=== PATIENT | female | born 1970 | race Hispanic/Latino ===

== ENCOUNTER 2017-01-11 15:10 | Inpatient (IN) | payer OTHER, SELFPAY ==
[2017-01-11 15:28] VITALS: BMI 35.4
--- NOTE | 2017-01-11 16:22 | ED PDOC ---
Arrival/HPI <Fito Sanchez - Last Filed: 01/11/17 18:49> - General Historian: Patient - History of Present Illness Time/Duration: < week Symptom Course: Intermittent Quality: Other (pinching ) Severity Level: Moderate <Chhaya Villagomez - Last Filed: 01/11/17 19:21> <Micah Man - Last Filed: 01/11/17 21:15> - General Chief Complaint: Abdominal Pain Time Seen by Provider: 01/11/17 15:48 - History of Present Illness Narrative History of Present Illness (Text): 01/11/17 16:20 46 year old female with past medical history of Crohn's and MVR presents for abd pain that began about 2 days ago. Pain is intermittent and 10/10 in severity. Patient used Oxycodone for pain. She uses oxycodone at home for back pain. Patient also c/o of nausea and vomiting over past 2 days. She denies having any C/D. 01/11/17 19:[address] Stout (Chhaya Villagomez) Past Medical History - Provider Review Nursing Documentation Reviewed: Yes - Infectious Disease Hx of Infectious Diseases: None - Tetanus Immunization Tetanus Immunization: Up to Date - Cardiac Hx Cardiac Disorders: Yes Hx Mitral Valve Prolapse: Yes - Pulmonary Hx Respiratory Disorders: No - Neurological Hx Neurological Disorder: No - HEENT Hx HEENT Disorder: No - Renal Hx Renal Disorder: No - Endocrine/Metabolic Hx Endocrine Disorders: No - Hematological/Oncological Hx Blood Disorders: No - Integumentary Hx Dermatological Disorder: No - Musculoskeletal/Rheumatological Hx Musculoskeletal Disorders: Yes Hx Arthritis: Yes Hx Back Pain: Yes Hx Herniated Disk: Yes - Gastrointestinal Hx Gastrointestinal Disorders: Yes Hx Crohn's Disease: Yes - Genitourinary/Gynecological Hx Genitourinary Disorders: No - Psychiatric Hx Depression: No Hx Emotional Abuse: No Hx Physical Abuse: No Hx Substance Use: No - Surgical History Hx Hysterectomy: Yes - Anesthesia Hx Anesthesia Reactions: No Hx Malignant Hyperthermia: No - Suicidal Assessment Feels Threatened In Home Enviroment: No <Chhaya Villagomez - Last Filed: 01/11/17 19:21> Family/Social History - Physician Review Nursing Documentation Reviewed: Yes Family/Social History: Unknown Family HX Smoking Status: Former Smoker Hx Alcohol Use: No Hx Substance Use: No Hx Substance Use Treatment: No <Chhaya Villagomez - Last Filed: 01/11/17 19:21> Allergies/Home Meds <Fito Sanchez - Last Filed: 01/11/17 18:49> <Chhaya Villagomez - Last Filed: 01/11/17 19:21> <Micah Man - Last Filed: 01/11/17 21:15> Allergies/Adverse Reactions: Allergies morphine Allergy (Verified 01/11/17 15:28) RASH Home Medications: Home Meds Medication Instructions Recorded Confirmed Diazepam [Valium] 10 mg PO PRN PRN 01/11/17 01/11/17 Gabapentin [Neurontin] 300 mg PO BID 01/11/17 01/11/17 levoFLOXacin [Levaquin] 500 mg PO DAILY 01/11/17 01/11/17 oxyCODONE [oxycodone Hydrochloride] 10 mg PO PRN PRN 01/11/17 01/11/17 Review of Systems - Review of Systems Constitutional: Fevers Eyes: Normal ENT: Normal Respiratory: Normal. absent: SOB, Wheezing Cardiovascular: Normal. absent: Chest Pain, Palpitations, Edema Gastrointestinal: Abdominal Pain, Nausea, Vomiting. absent: Constipation, Diarrhea, Hematochezia, Hematemesis Genitourinary Female: Normal. absent: Dysuria, Frequency Musculoskeletal: Normal. absent: Arthralgias, Back Pain Skin: Normal. absent: Rash, Skin Lesions Neurological: Normal. absent: Headache, Dizziness Endocrine: Normal. absent: Diaphoresis <Chhaya Villagomez - Last Filed: 01/11/17 19:21> Physical Exam Temperature: Afebrile Blood Pressure: Normal Pulse: Regular Respiratory Rate: Normal Appearance: Positive for: Well-Appearing, Non-Toxic Pain Distress: Moderate Mental Status: Positive for: Alert and Oriented X 3 - Systems Exam Head: Present: Atraumatic Mouth: Present: Moist Mucous Membranes Respiratory/Chest: Present: Clear to Auscultation, Good Air Exchange. No: Respiratory Distress, Accessory Muscle Use, Wheezes, Rales, Rhonchi Cardiovascular: Present: Regular Rate and Rhythm, Murmurs, Normal S1, S2 Abdomen: Present: Tenderness, Normal Bowel Sounds, Guarding. No: Distention, Peritoneal Signs, Rebound Upper Extremity: Present: Normal Inspection. No: Edema Lower Extremity: Present: Normal Inspection. No: Edema, CALF TENDERNESS Neurological: Present: GCS=15 Skin: Present: Warm, Dry, Normal Color. No: Rashes Psychiatric: Present: Alert, Oriented x 3, Normal Insight, Normal Concentration <HernandoChhaya - Last Filed: 01/11/17 19:21> ED OBSERVATION Date of observation admission: 01/11/17 Time of observation admission: 16:30 <Fito Sanchez - Last Filed: 01/11/17 18:49> <Chhaya Villagomez - Last Filed: 01/11/17 19:21> <Micah Man - Last Filed: 01/11/17 21:15> - Observation admission statement Patient is being placed in observation because:: Abdominal Pain (Fito Sanchez) - Goals of Observation Goals of observation are:: Needs reassessment for improving or resolution of symptoms. (Fito Sanchez) - Progress Note Progress Note: 01/11/17 18:49 A 46 year old female with abdominal pain. In agreement with resident note, which includes further HPI details. Patient was seen and evaluated with resident , came up with plan and treatment together. Signed out to Dr. Man to f/u CT, reevaluate and disposition. (Fito Sanchez) 01/11/17 19:59 sign out from day shift, pt with hx of crohn's, with abd pain, pending CT read, dispo Report Date : 01/11/2017 20:29:00 Dictator : Mode Moreira MD EXAM: CT Abdomen and Pelvis With Intravenous Contrast IMPRESSION: 1. The gallbladder is distended, without discrete gallstones. 2. There is hypodense fatty infiltration of the liver. 3. There is mild right hydronephrosis and hydroureter, without an obstructing calculus. There is mild fullness of the left renal collecting system, without obstructive nephrolithiasis. This is a progression. 4. There is an ovoid density again visualized within the left side of the pelvis measuring 2.9 x 2.7 cm, likely representing the left ovary. An enlarged lymph node would be considered with a clinical history of oophorectomy. A thin peripherally enhancing probable cyst is identified within the presumed left ovary measuring 1.6 x 1[address] findings described above. 01/11/17 21:11 on reeval, pt states she still has discomfort will order more pain meds dw Dr. Darek Stout, agrees with obs for further w/u and GI eval pt aware of and agrees with plan (Micah Man) Disposition/Present on Arrival - Present on Arrival Any Indicators Present on Arrival: No - Disposition Have Diagnosis and Disposition been Completed?: No Disposition Time: 16:30 <Fito Sanchez - Last Filed: 01/11/17 18:49> - Present on Arrival History of DVT/PE: No History of Uncontrolled Diabetes: No Urinary Catheter: No History of Decub. Ulcer: No History Surgical Site Infection Following: None <Chhaya Villagomez - Last Filed: 01/11/17 19:21> - Present on Arrival Any Indicators Present on Arrival: No - Disposition Have Diagnosis and Disposition been Completed?: Yes Disposition Time: 15:30 Patient Plan: Observation <Micah Man - Last Filed: 01/11/17 21:15> - Disposition Diagnosis: Abdominal pain Disposition: HOSPITALIZED Patient Problems: Current Active Problems Problem Status Onset Abdominal pain Acute Condition: STABLE
[2017-01-11] MEDS ORDERED: Iohexol 240 (50 ml) ONE (16:41)
[2017-01-11 16:46] LABS: HEMOGLOBIN 13.5 gm/dL (12.0-16.0); MEAN CELL VOLUME 85.8 fL (80.0-105.0); MEAN CORPUSCULAR HEMOGLOBIN 30.3 pg (25.0-35.0); MEAN CORPUSCULAR HGB CONC 35.3 g/dl (31.0-37.0); MEAN PLATELET VOLUME 11.5 fl (7.0-11.0); RBC 4.45 10^6/uL (3.5-6.1); RED CELL DISTRIBUTION WIDTH 13.1 % (11.5-14.5); WHITE BLOOD COUNT 8.7 10^3/ul (4.5-11.0)
[2017-01-11 16:51] LABS: ALB/GLOB RATIO 1.3 (1.1-1.8); ALBUMIN 4.6 g/dL (3.0-4.8); ALT/SGPT 47 U/L (7-56); AST/SGOT 42 U/L (15-39); BLOOD UREA NITROGEN 14 mg/dL (7-21); CALCIUM 9.9 mg/dL (8.4-10.5); GFR AFRICAN-AMERICAN > 60; GFR NON-AFRICAN AMERICAN > 60; LIPASE 80 U/L (23-300)
[2017-01-11] MEDS ORDERED: HYDROmorphone 2 mg/ml ISec IVP STA ×2 (17:01→21:07)
[2017-01-11] MEDS ORDERED: Iohexol 350 MG/100 ML VIAL ONE (18:23)
[2017-01-11 19:17] LABS: URINE BILIRUBIN NEGATIVE (NEGATIVE); URINE BLOOD NEGATIVE (NEGATIVE); URINE GLUCOSE (UA) NEGATIVE (NEGATIVE); URINE LEUKOCYTE ESTERASE TRACE Leu/uL (NEGATIVE); URINE NITRATE NEGATIVE (NEGATIVE); URINE PROTEIN NEGATIVE mg/dL (<30 mg/dL)
[2017-01-11 19:18] LABS: URINE APPEARANCE CLEAR (CLEAR); URINE COLOR YELLOW (YELLOW)
[2017-01-11 19:36] LABS: URINE BACTERIA FEW (NEG); URINE RBC 0 - 2 /hpf (0-2)
--- NOTE | 2017-01-11 20:29 | CT ---
EXAM: CT Abdomen and Pelvis With Intravenous Contrast CLINICAL HISTORY: The patient age is 46 years old and is female; Pain; Abdominal pain Facility exam id and description: Ct abdpelc abd pelvis po iv contrast TECHNIQUE: Axial computed tomography images of the abdomen and pelvis with intravenous contrast. This CT exam was performed using one or more of the following dose reduction techniques: automated exposure control, adjustment of the mA and/or kV according to patient size, and/or use of iterative reconstruction technique. Coronal and sagittal reformatted images were created and reviewed. CONTRAST: 100 mL of omni 350 administered intravenously. EXAM DATE/TIME: 01/11/2017 4:27 PM COMPARISON: CT - ABD PELVIS PO IV CONTRAST 01/17/2012 3:15:13 PM FINDINGS: Lower thorax: Dependent atelectatic change is identified at the lung bases posteriorly. ABDOMEN: Liver: There is hypodense fatty infiltration of the liver. The liver measures 19.0 cm in length, consistent with mild hepatomegaly. Gallbladder and bile ducts: The gallbladder is distended, without discrete gallstones. Pancreas: Normal contour, without acute peripancreatic stranding. Spleen: No splenomegaly. Adrenals: No mass. Kidneys and ureters: There is mild right hydronephrosis and hydroureter, without an obstructing calculus. There is mild fullness of the left renal collecting system, without obstructive nephrolithiasis. Stomach and bowel: Postoperative changes are visualized, consistent with a right hemicolectomy. Contrast and fecal material mildly distend the sigmoid colon. Appendix: The appendix is not visualized. PELVIS: Bladder: No mass. Reproductive: There is an ovoid density within the left side of the pelvis measuring 2.9 x 2.7 cm, likely representing the left ovary. An enlarged lymph node would be considered with a clinical history of oophorectomy. A thin peripherally enhancing probable cyst is identified within the presumed left ovary measuring 1.6 x 1.0 cm. The uterus is absent. Small hypodense foci are visualized at the level of the cervix, suggestive of nabothian cysts. ABDOMEN and PELVIS: Intraperitoneal space: Multiple surgical clips are visualized within the right side of the abdomen. Bones/joints: Mild disc bulging is visualized at L4-5 and L5-S1. Soft tissues: There is minimal herniation of fat into the umbilicus. Vasculature: No abdominal aortic aneurysm. Lymph nodes: No significant retroperitoneal or intrapelvic lymphadenopathy. IMPRESSION: 1. The gallbladder is distended, without discrete gallstones. 2. There is hypodense fatty infiltration of the liver. 3. There is mild right hydronephrosis and hydroureter, without an obstructing calculus. There is mild fullness of the left renal collecting system, without obstructive nephrolithiasis. This is a progression. 4. There is an ovoid density again visualized within the left side of the pelvis measuring 2.9 x 2.7 cm, likely representing the left ovary. An enlarged lymph node would be considered with a clinical history of oophorectomy. A thin peripherally enhancing probable cyst is identified within the presumed left ovary measuring 1.6 x 1.[address] findings described above.
[2017-01-11] MEDS: Sodium Chloride 0.9% 1,000 ML IV SCH (21:41)
[2017-01-12] MEDS ORDERED: HYDROmorphone 2 mg/ml ISec IVP STA ×2 (00:37→04:30)
--- NOTE | 2017-01-12 00:39 | CP.PCM.PN ---
Subjective - Date & Time of Evaluation Date of Evaluation: 01/12/17 Time of Evaluation: 00:38 - Subjective Subjective: Patient was seen at bedside. She complained of abdominal pain, severe, diffuse.Has nausea also.Vomited. Denies diarrhoea. ROS:Negative except as mentioned above. This 46 year old white woman was admitted with Has PMH of Crohn's disease, obesity, MVR, right hemicolectomy, PUD, gastritis, fatty infiltration. Objective - Vital Signs/Intake and Output Vital Signs (last 24 hours): Temp Pulse Resp BP Pulse Ox 98 F 63 18 113/58 L 98 01/12/17 00:26 01/12/17 00:26 01/12/17 00:26 01/12/17 00:26 01/12/17 00:26 - Medications Medications: Current Medications Sodium Chloride (Sodium Chloride 0.9%) 1,000 mls @ 100 mls/hr IV .Q10H SABINA Last Admin: 01/11/17 21:41 Dose: 100 mls/hr - Labs Labs: 01/11/17 16:33 01/11/17 16:33 Lab Studies 01/11/17 01/11/17 01/11/17 Range/Units 19:07 16:33 16:33 WBC 8.7 (4.5-11.0) 10^3/ul RBC 4.45 (3.5-6.1) 10^6/uL Hgb 13.5 (12.0-16.0) gm/dL Hct 38.2 (36.0-48.0) % MCV 85.8 (80.0-105.0) fL MCH 30.3 (25.0-35.0) pg MCHC 35.3 (31.0-37.0) g/dl RDW 13.1 (11.5-14.5) % Plt Count 125 (120.0-450.0) 10^3/uL MPV 11.5 H (7.0-11.0) fl Sodium 142 (132-148) mmol/L Potassium 3.8 (3.6-5.0) mmol/L Chloride 103 (98-107) mmol/L Carbon Dioxide 25 (21-33) mmol/L Anion Gap 18 (10-20) BUN 14 (7-21) mg/dL Creatinine 0.9 (0.5-1.4) mg/dL Est GFR ( Amer) > 60 Est GFR (Non-Af Amer) > 60 Random Glucose 87 (70-110) mg/dL Calcium 9.9 (8.4-10.5) mg/dL Total Bilirubin 1.1 (0.2-1.3) mg/dL AST 42 H (15-39) U/L ALT 47 (7-56) U/L Alkaline Phosphatase 131 (38-133) U/L Total Protein 8.2 (5.8-8.3) g/dL Albumin 4.6 (3.0-4.8) g/dL Globulin 3.6 gm/dL Albumin/Globulin Ratio 1.3 (1.1-1.8) Lipase 80 (23-300) U/L Urine Color Yellow (YELLOW) Urine Appearance Clear (CLEAR) Urine pH 6.0 (4.7-8.0) Ur Specific [place] 1.020 (1.005-1.035) Urine Protein Negative (<30 mg/dL) mg/dL Urine Glucose (UA) Negative (NEGATIVE) mg/dL Urine Ketones Negative (NEGATIVE) mg/dL Urine Blood Negative (NEGATIVE) Urine Nitrate Negative (NEGATIVE) Urine Bilirubin Negative (NEGATIVE) Urine Urobilinogen 1.0 H (<1 E.U./dL) E.U./dL Ur Leukocyte Esterase Trace H (NEGATIVE) Vincent/uL Urine RBC 0 - 2 (0-2) /hpf Urine WBC 5 - 10 (0-6) /hpf Ur Epithelial Cells 4 - 5 (0-5) /hpf Urine Bacteria Few (NEG) - Constitutional Appears: Well, No Acute Distress - Head Exam Head Exam: ATRAUMATIC, NORMAL INSPECTION, NORMOCEPHALIC - Eye Exam Eye Exam: Normal appearance - ENT Exam ENT Exam: Mucous Membranes Dry - Neck Exam Neck Exam: Normal Inspection - Respiratory Exam Respiratory Exam: NORMAL BREATHING PATTERN - Cardiovascular Exam Cardiovascular Exam: absent: JVD - GI/Abdominal Exam GI & Abdominal Exam: absent: Distended - Rectal Exam Rectal Exam: Deferred - Exam Additional comments: Deferred. - Extremities Exam Extremities Exam: Normal Inspection - Back Exam Back Exam: NORMAL INSPECTION - Neurological Exam Neurological Exam: Alert, Oriented x3 - Psychiatric Exam Psychiatric exam: Normal Affect, Normal Mood - Skin Skin Exam: Dry, Normal Color Assessment and Plan - Assessment and Plan (Free Text) Assessment: Diffuse abdominal pain. Nausea/vomiting. Crohn's disease. PUD. Gastritis. Fatty liver. Plan: Dilaudid 2 mg IV stat. Zofran 4 mg IV stat. Protonix 40 mg IV stat. Continue management as per PMD.
[2017-01-12] MEDS: Sodium Chloride 0.9% 1,000 ML IV SCH ×2 (07:59→22:18)
[2017-01-12] MEDS: HYDROmorphone 2 mg/ml ISec IVP PRN ×4 (07:59→22:15)
--- NOTE | 2017-01-12 14:17 | CP.PCM.CON ---
<Elise Maciel - Last Filed: 01/12/17 14:25> History of Present Illness - History of Present Illness History of Present Illness: Seen and examined at the bedside earlier today. The chart was reviewed. Request for consult this for abdominal pain. This is a 38-year-old female with a past medical history of Crohn's disease, hypertension, peptic ulcer disease came to the emergency room for further evaluation of abdominal pain. Patient states that she has been having intermittent abdominal pain for the past 2 days, the pain worsened and came to the hospital for further evaluation. She did complain of nausea and vomiting 2 denies any hematemesis . She denies any fever or chills, shortness of breath or chest pain. Her abdominal pain is starts in the epigastric area and radiates from right to the left upper abdomen. She did complain of diarrhea last week, she had an ear infection and was being treated with antibiotics. Currently she complains of constipation her last bowel movement was about 3 days ago. She does take oxycodone for back pain, she is also awaiting to undergo for neck surgery and have follow-up for thyroid swelling. She complains of a 15 pound weight loss in a month's time, she's noticed decrease in appetite. recently she started taking her Pentasa, she reports that she does not take it on a regular basis only when she feels a flareup. She takes 2 pills 4 times a day. Her last colonoscopy was June 2014 and was found to have ulcerations/erosions multiple biopsies were obtained throughout the colon and it was negative for active inflammation. on admission she had a CT scan of abdomen and pelvis and that showed:fecal matter and contrast distend the sigmoid , ovoid density in the left side of the pelvis, gallbladder right kidney hydronephrosis and hydroureter no obstructing stone and there is left renal fullness. Denies dysuria or hematuria. Her right colonic anastomosis was. Her last endoscopy was also June 2014 and that was normal. Past medical history: Crohn's disease, hypertension, diabetes mellitus, coronary artery disease, history of peptic ulcer disease, asthma, seizures. Surgical history: Right hemicolectomy, small bowel resection for Crohn's disease , hysterectomy, last EGD colonoscopy June 2014 Family history Sister and mother with gallbladder disease Social history: Denies EtOH smoking or drug abuse Allergies: Morphine Medications: reviewed as per MAR Review of systems: systems reviewed positive finding see HPI Past Patient History - Infectious Disease Hx of Infectious Diseases: None - Tetanus Immunizations Tetanus Immunization: Up to Date - Past Social History Smoking Status: Current Some Days Smoker - CARDIAC Hx Cardiac Disorders: Yes Hx Mitral Valve Prolapse: Yes - PULMONARY Hx Respiratory Disorders: No - NEUROLOGICAL Hx Neurological Disorder: No - HEENT Hx HEENT Problems: No - RENAL Hx Chronic Kidney Disease: No - ENDOCRINE/METABOLIC Hx Endocrine Disorders: No - HEMATOLOGICAL/ONCOLOGICAL Hx Blood Disorders: No - INTEGUMENTARY Hx Dermatological Problems: No - MUSCULOSKELETAL/RHEUMATOLOGICAL Hx Musculoskeletal Disorders: Yes Hx Arthritis: Yes Hx Back Pain: Yes Hx Falls: No Hx Herniated Disk: Yes - GASTROINTESTINAL Hx Gastrointestinal Disorders: Yes Hx Crohn's Disease: Yes - GENITOURINARY/GYNECOLOGICAL Hx Genitourinary Disorders: No - PSYCHIATRIC Hx Depression: No Hx Emotional Abuse: No Hx Physical Abuse: No - SURGICAL HISTORY Hx Hysterectomy: Yes Other/Comment: Right Ovary rupture - ANESTHESIA Hx Anesthesia Reactions: No Hx Malignant Hyperthermia: No Meds Allergies/Adverse Reactions: Allergies Allergy/AdvReac Type Severity Reaction Status Date / Time morphine Allergy RASH Verified 01/11/17 15:28 - Medications Medications: Current Medications Gabapentin (Neurontin) 300 mg PO BID SABINA PRN Reason: Protocol Last Admin: 01/12/17 09:08 Dose: 300 mg Hydromorphone HCl (Dilaudid) 2 mg IVP Q4H PRN PRN Reason: Pain, moderate (4-7) Last Admin: 01/12/17 12:57 Dose: 2 mg Sodium Chloride (Sodium Chloride 0.9%) 1,000 mls @ 100 mls/hr IV .Q10H [facility] Last Admin: 01/12/17 07:59 Dose: 100 mls/hr Ondansetron HCl (Zofran Inj) 4 mg IVP Q6H PRN PRN Reason: Nausea/Vomiting Last Admin: 01/12/17 08:00 Dose: 4 mg Physical Exam - Constitutional Appears: No Acute Distress - Head Exam Head Exam: NORMAL INSPECTION - Eye Exam Eye Exam: Normal appearance. absent: Scleral icterus - ENT Exam ENT Exam: Mucous Membranes Moist - Neck Exam Neck exam: Positive for: Normal Inspection - Respiratory Exam Respiratory Exam: Clear to Auscultation Bilateral, NORMAL BREATHING PATTERN. absent: Respiratory Distress - Cardiovascular Exam Cardiovascular Exam: +S1, +S2 - GI/Abdominal Exam GI & Abdominal Exam: Distended, Normal Bowel Sounds, Soft, Tenderness ( epigastric tenderness, difuss to right/left, no rebound or guarding). absent: Guarding, Rebound - Extremities Exam Extremities exam: Positive for: pedal edema (trace), pedal pulses present. Negative for: calf tenderness - Neurological Exam Neurological exam: Alert, Oriented x3 - Skin Skin Exam: Dry, Warm Results - Vital Signs Recent Vital Signs: Last Vital Signs Temp 98.1 F 01/12/17 07:52 Pulse 72 01/12/17 07:52 Resp 20 01/12/17 07:52 BP 123/66 01/12/17 07:52 Pulse Ox 97 01/12/17 07:52 - Labs Result Diagrams: 01/11/17 16:33 01/11/17 16:33 Labs: Laboratory Results - last 24 hr 01/11/17 01/11/17 01/11/17 16:33 16:33 19:07 WBC 8.7 RBC 4.45 Hgb 13.5 Hct 38.2 MCV 85.8 MCH 30.3 MCHC 35.3 RDW 13.1 Plt Count 125 MPV 11.5 H Sodium 142 Potassium 3.8 Chloride 103 Carbon Dioxide 25 Anion Gap 18 BUN 14 Creatinine 0.9 Est GFR ( Amer) > 60 Est GFR (Non-Af Amer) > 60 Random Glucose 87 Calcium 9.9 Total Bilirubin 1.1 AST 42 H ALT 47 Alkaline Phosphatase 131 Total Protein 8.2 Albumin 4.6 Globulin 3.6 Albumin/Globulin Ratio 1.3 Lipase 80 Urine Color Yellow Urine Appearance Clear Urine pH 6.0 Ur Specific [place] 1.020 Urine Protein Negative Urine Glucose (UA) Negative Urine Ketones Negative Urine Blood Negative Urine Nitrate Negative Urine Bilirubin Negative Urine Urobilinogen 1.0 H Ur Leukocyte Esterase Trace H Urine RBC 0 - 2 Urine WBC 5 - 10 Ur Epithelial Cells 4 - 5 Urine Bacteria Few Assessment & Plan - Assessment and Plan (Free Text) Assessment: Assessment: Abdominal pain History of Crohn's disease Constipation S/P right hemicolectomy and small bowel resection Diabetes mellitus Fatty liver Plan: Clear liquid diet Continue PPI Continue DVT prophylaxis Continue IV fluids for hydration Pain management give a dose of MiraLAX May benefit from colonoscopy Thank you for this consult for allowing us to participate in your patient's care , we will make further recommendations based on clinical course. Seen and discussed with Dr. Jarrell <Zoe Jarrell V - Last Filed: 01/12/17 23:43> Meds - Medications Medications: Current Medications Gabapentin (Neurontin) 300 mg PO BID SABINA PRN Reason: Protocol Last Admin: 01/12/17 18:12 Dose: 300 mg Hydromorphone HCl (Dilaudid) 2 mg IVP Q4H PRN PRN Reason: Pain, moderate (4-7) Last Admin: 01/12/17 22:15 Dose: 2 mg Sodium Chloride (Sodium Chloride 0.9%) 1,000 mls @ 100 mls/hr IV .Q10H SABINA Last Admin: 01/12/17 22:18 Dose: 100 mls/hr Ondansetron HCl (Zofran Inj) 4 mg IVP Q6H PRN PRN Reason: Nausea/Vomiting Last Admin: 01/12/17 18:13 Dose: 4 mg Results - Vital Signs Recent Vital Signs: Last Vital Signs Temp 98.4 F 01/12/17 16:00 Pulse 82 01/12/17 16:00 Resp 20 01/12/17 16:00 BP 98/52 L 01/12/17 16:00 Pulse Ox 94 L 01/12/17 16:00 - Labs Result Diagrams: 01/11/17 16:33 01/11/17 16:33 Attending/Attestation - Attestation I have fully participated in the care of the patient.: Yes I have reviewed all pertinent clinical information: Yes
[2017-01-12] MEDS ORDERED: POLYETHYLENE GLYCOL 3350 17 GM/Dose PACKET PO ONE (16:08)
--- NOTE | 2017-01-12 18:24 | NM ---
PROCEDURE: Nuclear Medicine Hepatobiliary Scan HISTORY: Thickened GB wall on CT, post prandial pain COMPARISON: 08/01/2013 hepatobiliary scan. January 11, 2017. CT abdomen and pelvis. TECHNIQUE: 6.0 mCi of technetium 99m Mebrofenin was administered intravenously. Planar images of the abdomen were obtained at 5 min intervals to 60 mins. Delayed images were also obtained. FINDINGS: LIVER: Timely and homogenous uptake. COMMON BILE DUCT: identified at 5 mins. GALLBLADDER: identified at 15 mins. SMALL BOWEL: Identified at 15 mins. IMPRESSION: Normal Hepatobiliary Scan. The cystic duct is patent.
--- NOTE | 2017-01-12 21:51 | CON ---
DATE: 01/12/2017 CHIEF COMPLAINT: Bilateral hydronephrosis. HISTORY OF PRESENT ILLNESS: The patient is a 46-year-old female with Crohns, was admitted for abdominal pain, the workup is for possible cholecystitis. She has no flank pain. A CAT scan was done with IV contrast, which read as showing bilateral hydro with no evidence of any obstruction. I reviewed the CAT scan and it appears to be either bilateral extrarenal pelvises or she did have a full bladder at that time. I do not think it is real. She has no history of any urologic issues other than when she had surgery for Crohns over 25 years ureteral catheter was put up prior to the exploratory laparotomy to aide in identification of the ureters. No history of stones. PAST MEDICAL HISTORY: In addition to the Crohns, she also has a history of herniated disc, mitral valve prolapse. SOCIAL HISTORY: She is a former smoker. She does not drink. No substance abuse. PAST SURGICAL HISTORY: She has had a prior hysterectomy. ALLERGIES: She has allergies to MORPHINE. MEDICATIONS AT HOME: Include Neurontin, Valium. REVIEW OF SYSTEMS: Currently, she is n.p.o. No symptoms referable to head, eyes, ears, nose or throat. No cardiac or respiratory symptoms. She does have abdominal pain. No vomiting. No psychiatric or skin abnormalities. PHYSICAL EXAMINATION GENERAL: Shows her to be mildly uncomfortable. VITAL SIGNS: She is afebrile, pulse 72, respirations 20, blood pressure 123/66. Alert and oriented x3. HEENT: Normocephalic. Sclerae are clear. Conjunctivae not injected. No CVA pain. SKIN: No purpura or edema. LABORATORY DATA: Lab work shows white count 8700, her AST is 42, lipase is 80, alk phos is 131, creatinine is 0.9. Her urine has RBCs, 5-10 WBCs, a few bacteria. IMPRESSION: I do not think the findings on CAT scan are significant, it may be related to either a full bladder at the time the study was done or extrarenal pelvises, but there was no evidence of any significant obstruction to the kidneys and she has no symptoms referable to them. Gerardo Su, MD
[2017-01-13] MEDS ORDERED: Simethicone 80 mg Chewtab PO STA (01:13)
--- NOTE | 2017-01-13 01:14 | CP.PCM.PN ---
Subjective - Date & Time of Evaluation Date of Evaluation: 01/13/17 Time of Evaluation: 01:14 - Subjective Subjective: Patient was seen because she complained of gas pains. Has no other complaints. Denies nausea, vomiting, chest pains, sob. ROS:Negative except as mentioned above. Medical record was reviewed. 46 year old white woman was admitted with abdominal pain of 2 days duration. PMH of Crohn's disease, obesity, MVR, right hemicolectomy, PUD, gastritis, fatty infiltration. Objective - Vital Signs/Intake and Output Vital Signs (last 24 hours): Temp Pulse Resp BP Pulse Ox 98.4 F 82 20 98/52 L 94 L 01/12/17 16:00 01/12/17 16:00 01/12/17 16:00 01/12/17 16:00 01/12/17 16:00 Intake and Output: 01/12/17 01/13/17 18:59 06:59 Intake Total 925 740 Balance 925 740 - Medications Medications: Current Medications Gabapentin (Neurontin) 300 mg PO BID SABINA PRN Reason: Protocol Last Admin: 01/12/17 18:12 Dose: 300 mg Hydromorphone HCl (Dilaudid) 2 mg IVP Q4H PRN PRN Reason: Pain, moderate (4-7) Last Admin: 01/12/17 22:15 Dose: 2 mg Sodium Chloride (Sodium Chloride 0.9%) 1,000 mls @ 100 mls/hr IV .Q10H SABINA Last Admin: 01/12/17 22:18 Dose: 100 mls/hr Ondansetron HCl (Zofran Inj) 4 mg IVP Q6H PRN PRN Reason: Nausea/Vomiting Last Admin: 01/12/17 18:13 Dose: 4 mg - Labs Labs: 01/11/17 16:33 01/11/17 16:33 - Constitutional Appears: Well, No Acute Distress - Head Exam Head Exam: ATRAUMATIC, NORMAL INSPECTION, NORMOCEPHALIC Additional comments: Obese person. - Eye Exam Eye Exam: Normal appearance - ENT Exam ENT Exam: Normal External Ear Exam - Neck Exam Neck Exam: Normal Inspection - Respiratory Exam Respiratory Exam: NORMAL BREATHING PATTERN - Cardiovascular Exam Cardiovascular Exam: absent: JVD - GI/Abdominal Exam GI & Abdominal Exam: absent: Distended - Rectal Exam Rectal Exam: Deferred - Exam Additional comments: Deferred. - Extremities Exam Extremities Exam: Normal Inspection - Back Exam Back Exam: NORMAL INSPECTION - Neurological Exam Neurological Exam: Alert, Oriented x3 - Psychiatric Exam Psychiatric exam: Normal Affect, Normal Mood - Skin Skin Exam: Normal Color Assessment and Plan - Assessment and Plan (Free Text) Assessment: Abdominal pain. Gas pains. Crohn's disease. Obesity. Gastritits. PUD. Plan: Simethicone 80 mg PO stat. Continue present management.
[2017-01-13] MEDS: HYDROmorphone 2 mg/ml ISec IVP PRN ×5 (02:05→18:14)
[2017-01-13 06:54] LABS: BASO # 0.03 K/mm3 (0.0-2.0); BASO % 0.4 % (0.0-3.0); EOS # 0.3 (0.0-0.7); EOS % 3.4 % (1.5-5.0); GRAN # 4.31 (1.4-6.5); GRAN % 53.1 % (50.0-68.0); HEMOGLOBIN 12.1 gm/dL (12.0-16.0); LYMPH % 37.3 % (22.0-35.0); MEAN CORPUSCULAR HEMOGLOBIN 29.7 pg (25.0-35.0); MEAN CORPUSCULAR HGB CONC 34.2 g/dl (31.0-37.0); MEAN PLATELET VOLUME 11.4 fl (7.0-11.0); MONO # 0.5 (0.1-0.6); MONO % 5.8 % (1.0-6.0); PLATELET COUNT 109 10^3/uL (120.0-450.0); RBC 4.07 10^6/uL (3.5-6.1); RED CELL DISTRIBUTION WIDTH 13.1 % (11.5-14.5); WHITE BLOOD COUNT 8.1 10^3/ul (4.5-11.0)
[2017-01-13 07:02] LABS: ALB/GLOB RATIO 1.2 (1.1-1.8); ALBUMIN 3.5 g/dL (3.0-4.8); ALT/SGPT 38 U/L (7-56); AST/SGOT 36 U/L (15-39); BLOOD UREA NITROGEN 8 mg/dL (7-21); CALCIUM 8.8 mg/dL (8.4-10.5); GFR AFRICAN-AMERICAN > 60; GFR NON-AFRICAN AMERICAN > 60
[2017-01-13 07:20] LABS: FREE T4 1.1 ng/dL (0.78-2.19)
[2017-01-13] MEDS: Sodium Chloride 0.9% 1,000 ML IV SCH ×2 (14:37→20:00)
[2017-01-14] MEDS: HYDROmorphone 2 mg/ml ISec IVP PRN ×6 (00:03→20:01)
[2017-01-14] MEDS: Sodium Chloride 0.9% 1,000 ML IV SCH ×2 (11:17→19:58)
--- NOTE | 2017-01-14 13:02 | US ---
HISTORY: R goiter TECHNIQUE: Sonographic evaluation of the thyroid gland. COMPARISON: CT neck 02/20/2014 FINDINGS: RIGHT LOBE: Measures 4 x 1.6 x 2.3 cm. Homogeneous echotexture. Normal vascularity. Nodules: Hypoechoic solid 0.6 cm midpole nodule. LEFT LOBE: Measures 1.9 x 0.8 x 1.2 cm. Small in size. Homogeneous echotexture. Normal vascularity. Nodules: No discrete nodule identified. ISTHMUS: Measures 0.4 cm. Homogeneous echotexture. Normal vascularity. Nodules: No discrete nodule identified. OTHER FINDINGS: No lymphadenopathy seen. IMPRESSION: Asymmetric thyroid gland with a Small in size left lobe. Right lobe subcentimeter nodule as above.
[2017-01-14] MEDS: Mesalamine ER Cap 500 MG PO SCH ×3 (16:57→21:59)
[2017-01-15] MEDS: HYDROmorphone 2 mg/ml ISec IVP PRN ×6 (00:17→21:13)
[2017-01-15 07:13] LABS: BASO # 0.02 K/mm3 (0.0-2.0); BASO % 0.3 % (0.0-3.0); EOS # 0.3 (0.0-0.7); EOS % 3.3 % (1.5-5.0); GRAN # 4.63 (1.4-6.5); GRAN % 58.9 % (50.0-68.0); HEMOGLOBIN 12.7 gm/dL (12.0-16.0); LYMPH # 2.4 (1.2-3.4); LYMPH % 30.5 % (22.0-35.0); MEAN CELL VOLUME 86.8 fL (80.0-105.0); MEAN CORPUSCULAR HEMOGLOBIN 29.9 pg (25.0-35.0); MEAN CORPUSCULAR HGB CONC 34.4 g/dl (31.0-37.0); MEAN PLATELET VOLUME 11.6 fl (7.0-11.0); MONO # 0.6 (0.1-0.6); PLATELET COUNT 113 10^3/uL (120.0-450.0); RBC 4.25 10^6/uL (3.5-6.1); RED CELL DISTRIBUTION WIDTH 13.3 % (11.5-14.5); WHITE BLOOD COUNT 7.9 10^3/ul (4.5-11.0)
[2017-01-15 07:28] LABS: ALB/GLOB RATIO 1.3 (1.1-1.8); ALBUMIN 3.8 g/dL (3.0-4.8); ALT/SGPT 35 U/L (7-56); AST/SGOT 24 U/L (15-39); BLOOD UREA NITROGEN 4 mg/dL (7-21); CALCIUM 8.8 mg/dL (8.4-10.5); GFR AFRICAN-AMERICAN > 60; GFR NON-AFRICAN AMERICAN > 60
[2017-01-15] MEDS: Mesalamine ER Cap 500 MG PO SCH ×4 (09:21→21:36)
[2017-01-15] MEDS ORDERED: Peg-Electrolyte Oral Soln 4L (Golytely) PO ONE (12:25)
[2017-01-15 13:24] LABS: HEPATITIS B SURFACE AG NEGATIVE (NEGATIVE)
[2017-01-15 13:29] LABS: HEPATITIS A IGM NEGATIVE (NEGATIVE)
[2017-01-15 13:34] LABS: HEPATITIS B CORE AB NEGATIVE (NEGATIVE)
--- NOTE | 2017-01-15 13:37 | US ---
HISTORY: lower abdominal pain r/o l ovarian lesion COMPARISON: Transvaginal pelvic ultrasound examination 10/19/2012, abdomen and pelvis CT 01/11/2017 TECHNIQUE: Transvaginal pelvic ultrasound was performed in sagittal and transverse planes FINDINGS: UTERUS: The uterus is again not identified status post hysterectomy. ENDOMETRIUM: Prior hysterectomy. CERVIX: Multiple small nabothian cysts are again identified with the cervix stable in appearance overall. RIGHT OVARY: Not identified status post prior right oophorectomy. LEFT OVARY: Measures 3.3 x 2.9 x 2.9 cm cm. No solid mass. Normal intra-ovarian arterial blood flow is a captured the left ovary with a minimally complicated cyst identified measuring 1.8 x 2.2 cm with a rim of soft tissue noted superiorly. No suspicious solid adnexal mass identified. FREE FLUID: No significant free fluid noted. OTHER FINDINGS: None. IMPRESSION: 1. 2.2 cm mildly complex cyst seen at the left ovary. No definite pattern that would suggest over an torsion at this time. 2. The uterus and right ovary are not identified status post prior hysterectomy and right oophorectomy.
[2017-01-15 13:41] LABS: HEPATITIS C ANTIBODY NEGATIVE (NEGATIVE)
[2017-01-15] MEDS: Sodium Chloride 0.9% 1,000 ML IV SCH (15:45)
[2017-01-16] MEDS: HYDROmorphone 2 mg/ml ISec IVP PRN ×4 (01:16→13:23)
[2017-01-16] MEDS: Sodium Chloride 0.9% 1,000 ML IV SCH (01:24)
[2017-01-16] MEDS: Mesalamine ER Cap 500 MG PO SCH ×2 (10:13→13:26)
--- NOTE | 2017-01-16 14:48 | PN ---
DATE: 01/15/2017 DAILY PROGRESS NOTE SUBJECTIVE: The patient is a 46-year-old female with a past medical history positive for Crohn's disease, chronic low back pain due to herniated disk. She also has a history of mitral valve prolapse, who presented to the emergency room complaining of abdominal pain over the past two days. She was complaining of nausea and vomiting associated with the abdominal pain. She claims that it felt like an exacerbation of her Crohn's disease. Therefore, presented to the emergency room and is admitted. She is being treated with intravenous fluids. Over the past two days, she was placed on clear liquid diet. She is followed by Dr. Jarrell. She is known to be allergic to morphine, which caused a rash in the past and at the time of admission, she was taking diazepam 10 mg as needed, Neurontin 300 mg twice a day, Levaquin 500 mg once a day and oxycodone 10 mg as needed. During the hospital stay, her abdominal pain has slowly subsided. However, her low back pain and paralumbar pain has increased. A fullness in the left side of the neck was noted. The patient's thyroid functions were normal. The patient underwent thyroid ultrasound, which showed a smaller left lobe of the thyroid and there was a 0.6 mm nodule in the right lobe. Ovarian ultrasound revealed a left-sided ovarian cyst. The patient is status post hysterectomy and right oophorectomy. Admitting CAT scan of the abdomen showed the gallbladder to be distended without discrete gallstones. Followup HIDA scan was negative for cholecystitis. There was a fatty infiltration of the liver. Hydronephrosis and hydroureter without obstructing calculus was noted on CAT scan. The patient was evaluated by Dr. Su and Dr. Longo, urologist and felt that this was not a urological problem at this point. Ovoid density in the left pelvis was evaluated by the ultrasound as mentioned above. At this point in time, the case was discussed with Dr. Jarrell and the patient is scheduled for endoscopy and colonoscopy in the morning. At that point, she will hopefully be ready for discharge to home. The patient is to receive Valium 10 mg in a onetime dose because of the increasing low back pain. Armani Stout MD [facility] # [id number]
[2017-01-16] MEDS ORDERED: Midazolam 2 MG/2 ML VIAL ONE (16:27)
[2017-01-16] MEDS ORDERED: Propofol 10 mg/ml Inj (20 ML) ONE ×3 (16:27→17:20)
[2017-01-16] MEDS ORDERED: Lidocaine 1% Inj (20ml) ONE (16:30)
[2017-01-16 17:40] VITALS: RESP 16; TEMP 98.3; O2SAT 99
[2017-01-16] MEDS ORDERED: Sodium Chloride 0.9% 1,000 ML IV SCH (17:45)
[2017-01-16 18:09] VITALS: PULSE 66
[2017-01-16 18:23] VITALS: BP 124/65
[2017-01-17 01:12] LABS: TB ANTIGEN MINUS NIL <0.00 IU/mL
--- NOTE | 2017-01-17 04:53 | PN ---
DATE: 01/16/2017 SUBJECTIVE: The patient is seen in noon hour this Sunday in room 360, bed 2. Initially admitted with abdominal pain and flare-up of her Crohn's disease. She is now complaining of neck pain, low back pain and numbness in low right arm. She is concerned that she has been prepped for an endoscopic procedure, has not gotten her Valium *------*, but has received increasing doses of Dilaudid for pain. PHYSICAL EXAMINATION: HEAD AND NECK: Unremarkable. LUNGS: Show good aeration right and left. HEART: Regular, not tachycardic. ABDOMEN: Relatively soft. No point tenderness noted. EXTREMITIES: Show no edema. IMPRESSION: 1. Hospital admission with abdominal pain in a 46-year-old woman with Crohn's disease. 2 Multiple chronic pain syndromes, chronic neck pain with right cervical radiculopathy. 3. Chronic low back pain. PLAN: Case was discussed with her nurse, as well as other doctors who saw her since the time of admission. She is scheduled for endoscopy later today. We will follow closely. Tristen Stuot MD
--- NOTE | 2017-01-17 06:53 | CP.PCM.PN ---
Subjective - Date & Time of Evaluation Date of Evaluation: 01/16/17 Time of Evaluation: 21:00 - Subjective Subjective: Patient left against medical advice, see ama sheet for details, primary team was notified by the nursing. Objective - Vital Signs/Intake and Output Vital Signs (last 24 hours): Temp Pulse Resp BP Pulse Ox 98.3 F 66 16 124/65 99 01/16/17 18:15 01/16/17 18:15 01/16/17 18:15 01/16/17 18:15 01/16/17 18:15 Intake and Output: 01/16/17 01/17/17 18:59 06:59 Intake Total 0 Balance 0 - Labs Labs: 01/15/17 06:30 01/15/17 06:30
== END 2017-01-16 21:30 | disposition left against medical advice (07) | DRG 386 ==
LOC: ED 15:10 → EROBSV 16:30 → ERH 21:14 → 3RNO 22:33 → OBSVTOIN 01-14 11:15
PROVIDERS: ADMIT Internal Medicine; ATTEND Internal Medicine
PROC: 0DB68ZX Excision of Stomach, Via Natural or Artificial Opening Endoscopic, Diagnostic (ICD-10-PCS; 2017-01-16)
PROC: 0DBE8ZX Excision of Large Intestine, Via Natural or Artificial Opening Endoscopic, Diagnostic (ICD-10-PCS; principal; 2017-01-16 16:45)
PROC: 0DB98ZX Excision of Duodenum, Via Natural or Artificial Opening Endoscopic, Diagnostic (ICD-10-PCS; 2017-01-16 16:45)
DX: K50.90 Crohn's disease, unspecified, without complications (principal); N13.30 Unspecified hydronephrosis; R56.9 Unspecified convulsions; K76.0 Fatty (change of) liver, not elsewhere classified; K29.50 Unspecified chronic gastritis without bleeding; K29.80 Duodenitis without bleeding; I10 Essential (primary) hypertension; M54.12 Radiculopathy, cervical region; K64.8 Other hemorrhoids; J45.909 Unspecified asthma, uncomplicated; I25.10 Atherosclerotic heart disease of native coronary artery without angina pectoris; K27.9 Peptic ulcer, site unspecified, unspecified as acute or chronic, without hemorrhage or perforation; E11.9 Type 2 diabetes mellitus without complications; I34.1 Nonrheumatic mitral (valve) prolapse; N83.202 Unspecified ovarian cyst, left side; E04.1 Nontoxic single thyroid nodule; E66.9 Obesity, unspecified; M54.5 Low back pain; G89.29 Other chronic pain; Z68.35 Body mass index [BMI] 35.0-35.9, adult; Z98.0 Intestinal bypass and anastomosis status; Z87.891 Personal history of nicotine dependence; Z88.5 Allergy status to narcotic agent

== ENCOUNTER 2017-12-12 23:45 | Inpatient (IN) | payer OTHER ==
[2017-12-12 23:59] VITALS: BMI 38.4
--- NOTE | 2017-12-13 00:07 | ED PDOC ---
Arrival/HPI - General Time Seen by Provider: 12/12/17 23:51 Historian: Patient - History of Present Illness Narrative History of Present Illness (Text): 12/13/17 00:07 Edgardo Whitley is a 46 year old female, whose past medical history includes mitral valve prolapse and Crohn's disease, who presents to the Emergency department brought in by EMS complaining of abdominal pain. Patient states she has been experiencing LLQ abdominal pain, nausea, and vomiting for the past few days. Patient notes symptoms are consistent with previous episodes of Crohn's exacerbation. Patient states she was recently seen by her PMD for similar symptoms and placed on Cipro with only temporary relief. Patient denies any fever, chills, chest pain, shortness of breath, diarrhea, urinary symptoms, back pain, neck pain, headache, dizziness, or any other complaints. Symptom Onset: Gradual Symptom Course: Unchanged Activities at Onset: Light Context: Home Past Medical History - Provider Review Nursing Documentation Reviewed: Yes - Infectious Disease Hx of Infectious Diseases: None - Tetanus Immunization Tetanus Immunization: Up to Date - Cardiac Hx Cardiac Disorders: Yes Hx Mitral Valve Prolapse: Yes - Pulmonary Hx Respiratory Disorders: No - Neurological Hx Neurological Disorder: No - HEENT Hx HEENT Disorder: No - Renal Hx Renal Disorder: No - Endocrine/Metabolic Hx Endocrine Disorders: No - Hematological/Oncological Hx Blood Disorders: No - Integumentary Hx Dermatological Disorder: No - Musculoskeletal/Rheumatological Hx Musculoskeletal Disorders: Yes Hx Arthritis: Yes Hx Back Pain: Yes Hx Falls: No Hx Herniated Disk: Yes - Gastrointestinal Hx Gastrointestinal Disorders: Yes Hx Crohn's Disease: Yes - Genitourinary/Gynecological Hx Genitourinary Disorders: No - Psychiatric Hx Depression: No Hx Emotional Abuse: No Hx Physical Abuse: No Hx Substance Use: No - Surgical History Hx Hysterectomy: Yes Other/Comment: Right Ovary rupture - Anesthesia Hx Anesthesia Reactions: No Hx Malignant Hyperthermia: No - Suicidal Assessment Feels Threatened In Home Enviroment: No Family/Social History - Physician Review Nursing Documentation Reviewed: Yes Family/Social History: Unknown Family HX Smoking Status: Current Some Days Smoker Hx Alcohol Use: No Hx Substance Use: No Hx Substance Use Treatment: No Allergies/Home Meds Allergies/Adverse Reactions: Allergies morphine Allergy (Verified 01/11/17 15:28) RASH Home Medications: Home Meds Medication Instructions Recorded Confirmed Gabapentin [Neurontin] 600 mg PO TID 12/13/17 12/13/17 Review of Systems - Physician Review All systems were reviewed & negative as marked: Yes - Review of Systems Constitutional: Normal. absent: Fevers Eyes: Normal ENT: Normal Respiratory: Normal. absent: SOB, Cough Cardiovascular: Normal Gastrointestinal: Abdominal Pain, Nausea, Vomiting. absent: Diarrhea Genitourinary Female: Normal. absent: Dysuria, Frequency, Hematuria, Urine Output Changes Musculoskeletal: Normal. absent: Back Pain, Neck Pain Skin: Normal. absent: Rash Neurological: Normal. absent: Headache, Dizziness Endocrine: Normal Hemo/Lymphatic: Normal Psychiatric: Normal Physical Exam Vital Signs Reviewed: Yes Vital Signs Temp Pulse Resp BP Pulse Ox 12/13/17 02:00 85 18 127/79 100 12/13/17 00:21 98.8 F 98 H 20 122/89 95 Temperature: Afebrile Blood Pressure: Normal Pulse: Regular Respiratory Rate: Normal Appearance: Positive for: Well-Appearing, Non-Toxic, Comfortable Pain Distress: None Mental Status: Positive for: Alert and Oriented X 3 - Systems Exam Head: Present: Atraumatic, Normocephalic Pupils: Present: PERRL Extroacular Muscles: Present: EOMI Conjunctiva: Present: Normal Mouth: Present: Moist Mucous Membranes Neck: Present: Normal Range of Motion Respiratory/Chest: Present: Clear to Auscultation, Good Air Exchange. No: Respiratory Distress, Accessory Muscle Use Cardiovascular: Present: Regular Rate and Rhythm, Normal S1, S2. No: Murmurs Abdomen: Present: Tenderness (LLQ tenderness). No: Distention, Peritoneal Signs Back: Present: Normal Inspection Upper Extremity: Present: Normal Inspection. No: Cyanosis, Edema Lower Extremity: Present: Normal Inspection. No: Edema Neurological: Present: GCS=15, CN II-XII Intact, Speech Normal Skin: Present: Warm, Dry, Normal Color. No: Rashes Psychiatric: Present: Alert, Oriented x 3, Normal Insight, Normal Concentration Medical Decision Making ED Course and Treatment: 12/13/17 00:07 Impression: 46 year old female complaining of LLQ abdominal pain, nausea, and vomiting. Plan: -- EKG -- Chest X-ray -- Labs, cardiac enzymes, amylase, lipase, blood cultures -- IV fluids -- Dilaudid -- Zofran -- Reassess and disposition Prior Visits: Notes and results from previous visits were reviewed. On 01/14/2017, pt was seen in the Emergency department for abdominal pain, nausea, and vomiting. Pt was admitted to the hospital for further evaluation. Progress Notes: Reviewed EKG, NSR at [address]-segment elevations or depressions, no T-wave inversions, normal intervals. 12/13/17 02:45 CT Abdomen and Pelvis shows: Lung bases: Bibasilar nonspecific infiltrates are present, consistent with atelectasis or pneumonia. Mediastinum: Small hiatal hernia. ABDOMEN: Liver: Enlarged fatty liver. Gallbladder and bile ducts: Gallbladder distention 12 cm.If clinically warranted , a right upper quadrant ultrasound and correlation with LFTs may be helpful for further assessment. Pancreas: Unremarkable. No mass. No ductal dilation. Spleen: Unremarkable. No splenomegaly. Adrenals: Unremarkable. No mass. Kidneys and ureters: Unremarkable. No solid mass. No hydronephrosis. Stomach and bowel: There are nonspecific fluid filled stomach, small bowel loops and colon with wall thickening and relative decompression are some small bowel loops in the right hemiabdomen. These findings can represent ileus versus an infectious/inflammatory gastroenteritis/enterocolitis versus slow transit versus peristalsis. Close clinical surveillance is recommended if patient demonstrate acute obstructive symptoms. Right hemicolectomy. PELVIS: Appendix: Appendectomy. Bladder: There is nonspecific bladder wall thickening. This may be related to incomplete distention. Reproductive: Uterus is seen. ABDOMEN and PELVIS: Intraperitoneal space: Unremarkable. No free air. No significant fluid collection. Bones/joints: No acute fracture. No dislocation. Soft tissues: There is a metallic object abutting the lateral aspect of the lower abdominal and pelvic junction near the subcutaneous soft tissues.There is a fat-containing umbilical hernia. Vasculature: Unremarkable. No abdominal aortic aneurysm. Lymph nodes: Unremarkable. No enlarged lymph nodes. Other findings: Scattered mesenteric postoperative changes. Left mid anterior abdomen anterior colic anastomosis. IMPRESSION: 1. Gallbladder distention 12 cm.If clinically warranted, a right upper quadrant ultrasound and correlation with LFTs may be helpful for further assessment. 2. There are nonspecific fluid filled stomach, small bowel loops and colon with wall thickening and relative decompression are some small bowel loops in the right hemiabdomen. These findings can represent ileus versus an infectious/inflammatory gastroenteritis/enterocolitis versus slow transit versus peristalsis. Close clinical surveillance is recommended if patient demonstrate acute obstructive symptoms. Oral contrast administration can be helpful Davol insertion is clinically suspected. Correlation with internal medicine /gastroenterology evaluation and further workup or followup as recommended by patient's clinical data. 12/13/17 03:[address] Stout, who is aware and agrees with plan. Accepts pt in to his service. Pt will go to [facility] observation for Crohn's exacerbation. - Lab Interpretations Microbiology Results: Microbiology Results 12/13/17 00:46 Blood-Venous Blood Culture - Preliminary NO GROWTH AFTER 48 HOURS 12/13/17 00:16 Blood-Venous Blood Culture - Preliminary NO GROWTH AFTER 48 HOURS 12/13/17 07:30 Urine,Clean Catch Urine Culture - Final No Growth (<1,000 CFU/ML) Lab Results: 12/13/17 00:40 12/13/17 00:40 Lab Results 12/13/17 03:15: Urine Color Yellow, Urine Appearance Clear, Urine pH 7.5, Ur Specific [place] 1.010, Urine Protein Negative, Urine Glucose (UA) Negative, Urine Ketones Negative, Urine Blood Negative, Urine Nitrate Negative, Urine Bilirubin Negative, Urine Urobilinogen 0.2, Ur Leukocyte Esterase Trace H, Urine RBC 0 - 2, Urine WBC 1 - 3, Ur Epithelial Cells 0 - 2, Urine Bacteria Occ 12/13/17 00:40: Sodium 145, Potassium 3.8, Chloride 104, Carbon Dioxide 29, Anion Gap 16, BUN 8, Creatinine 0.8, Est GFR ( Amer) > 60, Est GFR (Non- Af Amer) > 60, Random Glucose 119 H, Calcium 10.1, Total Bilirubin 0.6, AST 46 H , ALT 52, Alkaline Phosphatase 116, Lactate Dehydrogenase 579, Total Creatine Kinase 88, Troponin I < 0.01, Total Protein 8.1, Albumin 4.5, Globulin 3.6, Albumin/Globulin Ratio 1.2, Amylase 76, Lipase 137 12/13/17 00:40: PT 13.6 H, INR 1.19 H, APTT 32.1 12/13/17 00:40: WBC 8.6, RBC 4.53, Hgb 13.6, Hct 38.9, MCV 85.9, MCH 30.0, MCHC 35.0, RDW 13.6, Plt Count 154, MPV 11.1 H, Gran % 64.8, Lymph % (Auto) 27.1, [place] % (Auto) 5.1, Eos % (Auto) 2.7, Baso % (Auto) 0.3, Gran # 5.59, Lymph # ( Auto) 2.3, [place] # (Auto) 0.4, Eos # (Auto) 0.2, Baso # (Auto) 0.03 I have reviewed the lab results: Yes - RAD Interpretation Radiology Orders: 12/13/17 01:11 ABD & PELVIS IV CONTRAST ONLY [CT] Stat 12/13/17 11:54 ABDOMEN COMPLETE [US] Urgent 12/14/17 10:10 SPINAL CANAL LUMBAR W/O CONT [MRI] Routine Phone Technician: Radiologist - EKG Interpretation Interpreted by ED Physician: Yes Type: 12 lead EKG - Medication Orders Current Medication Orders: Acetaminophen (Tylenol 325mg Tab) 650 mg PO Q4 PRN PRN Reason: Fever >100.4 F Enoxaparin Sodium (Lovenox) 40 mg SC DAILY SABINA PRN Reason: Protocol Last Admin: 12/15/17 11:07 Dose: 40 mg Subcutaneous Administrations Document 12/15/17 11:07 LMN (Rec: 12/15/17 11:07 LMN [id number]) Injection Site MAR Injection Site Right Arm Charges for Administration # of Subcutaneous Administrations 1 Hydromorphone HCl (Dilaudid) 2 mg IVP Q4H PRN PRN Reason: Pain, severe (8-10) Last Admin: 12/15/17 20:23 Dose: 2 mg MAR Pain Assessment Document 12/15/17 20:23 MJ (Rec: 12/15/17 20:23 MJ [id number]) Pain Reassessment Is this a pain reassessment? No Sleep Is patient sleeping during reassessment? No Presence of Pain Presence of Pain Yes Pain Scale Used Pain Scale Used Numeric Location Pain Location Body Site Abdomen Description Description Constant Intensity of Pain at present 8 Pain Behavior Moaning Alleviating Factors/Management Medication Techniques Alleviating Factors Medication IVP Administration Document 12/15/17 20:23 MJ (Rec: 12/15/17 20:23 MJ [id number]) Charges for Administration # of IVP Administrations 1 Metronidazole (Flagyl) 500 mg in 100 mls @ 100 mls/hr IVPB Q8 SABINA PRN Reason: Protocol Last Admin: 12/15/17 15:39 Dose: 100 mls/hr eMAR Start Stop Document 12/15/17 15:39 LMN (Rec: 12/15/17 15:39 LMN [id number]) Intravenous Solution Start Date 12/15/17 Start Time 15:39 Mesalamine (Pentasa) 1,000 mg PO QID [facility] Last Admin: 12/15/17 18:34 Dose: 1,000 mg Ondansetron HCl (Zofran Inj) 4 mg IVP Q6H PRN PRN Reason: Nausea/Vomiting Last Admin: 12/15/17 20:22 Dose: 4 mg IVP Administration Document 12/15/17 20:22 MJ (Rec: 12/15/17 20:23 MJ [id number]) Charges for Administration # of IVP Administrations 1 Pantoprazole Sodium (Protonix Inj) 40 mg IVP DAILY [facility] Last Admin: 12/15/17 11:09 Dose: 40 mg Sucralfate (Carafate Oral Susp) 1 gm PO 0630,1130,1630,2200 [facility] Last Admin: 12/15/17 17:19 Dose: 1 gm Tramadol HCl (Ultram) 50 mg PO TID PRN PRN Reason: Pain, moderate (4-7) Discontinued Medications Hydromorphone HCl (Dilaudid) 2 mg IVP STAT STA Stop: 12/13/17 00:14 Last Admin: 12/13/17 00:55 Dose: 2 mg MAR Pain Assessment Document 12/13/17 00:55 AD (Rec: 12/13/17 00:56 AD [facility] [email or web address] Pain Reassessment Is this a pain reassessment? No Presence of Pain Presence of Pain Yes Pain Scale Used Pain Scale Used Numeric Description Intensity of Pain at present 10 IVP Administration Document 12/13/17 00:55 AD (Rec: 12/13/17 00:56 AD [facility] [email or web address] Charges for Administration # of IVP Administrations 1 Hydromorphone HCl (Dilaudid) 2 mg IVP STAT STA Stop: 12/13/17 01:12 Last Admin: 12/13/17 01:20 Dose: 2 mg MAR Pain Assessment Document 12/13/17 01:20 AD (Rec: 12/13/17 01:26 AD [email or web address] Pain Reassessment Is this a pain reassessment? No Presence of Pain Presence of Pain Yes Pain Scale Used Pain Scale Used Numeric Description Intensity of Pain at present 10 Pain Behavior Facial Grimacing IVP Administration Document 12/13/17 01:20 AD (Rec: 12/13/17 01:26 AD [email or web address] Charges for Administration # of IVP Administrations 1 Hydromorphone HCl (Dilaudid) 1 mg IVP Q4H PRN PRN Reason: Pain, severe (8-10) Last Admin: 12/13/17 10:16 Dose: 1 mg MAR Pain Assessment Document 12/13/17 10:16 MCV (Rec: 12/13/17 10:17 [place] [id number]) Pain Reassessment Is this a pain reassessment? No Presence of Pain Presence of Pain Yes Pain Scale Used Pain Scale Used Numeric Location Pain Location Body Site Back Description Description Constant Intensity of Pain at present 8 Pain Behavior Restlessness Facial Grimacing Alleviating Factors/Management Medication Techniques Alleviating Factors Medication IVP Administration Document 12/13/17 10:16 MCV (Rec: 12/13/17 10:17 [place] [id number]) Charges for Administration # of IVP Administrations 2 Hydromorphone HCl (Dilaudid) 2 mg IVP STAT STA Stop: 12/13/17 03:22 Last Admin: 12/13/17 03:55 Dose: 2 mg MAR Pain Assessment Document 12/13/17 03:55 AD (Rec: 12/13/17 03:55 AD [email or web address] Pain Reassessment Is this a pain reassessment? No Presence of Pain Presence of Pain Yes Description Intensity of Pain at present 8 IVP Administration Document 12/13/17 03:55 AD (Rec: 12/13/17 03:55 AD [email or web address] Charges for Administration # of IVP Administrations 1 Hydromorphone HCl (Dilaudid) 2 mg IVP Q6H PRN PRN Reason: Pain, severe (8-10) Last Admin: 12/13/17 14:12 Dose: 2 mg MAR Pain Assessment Document 12/13/17 14:12 MCV (Rec: 12/13/17 14:12 [place] [id number]) Pain Reassessment Is this a pain reassessment? No Presence of Pain Presence of Pain Yes Pain Scale Used Pain Scale Used Numeric Location Pain Location Body Site Abdomen Description Description Constant Intensity of Pain at present 8 Pain Behavior Restlessness Facial Grimacing Alleviating Factors/Management Medication Techniques Alleviating Factors Medication IVP Administration Document 12/13/17 14:12 MCV (Rec: 12/13/17 14:12 MCV [id number]) Charges for Administration # of IVP Administrations 1 Sodium Chloride (Sodium Chloride 0.9%) 1,000 mls @ 100 mls/hr IV .Q10H STA Stop: 12/13/17 10:11 Last Admin: 12/13/17 00:55 Dose: 100 mls/hr eMAR Start Stop Document 12/13/17 00:55 AD (Rec: 12/13/17 00:55 AD [facility] [email or web address] Intravenous Solution Start Date 12/13/17 Start Time 00:55 Sodium Chloride (Sodium Chloride 0.9%) 1,000 mls @ 100 mls/hr IV .Q10H STA Stop: 12/13/17 13:17 Last Admin: 12/13/17 04:36 Dose: 100 mls/hr eMAR Start Stop Document 12/13/17 04:36 PCO (Rec: 12/13/17 04:37 PCO [facility] [id number] Intravenous Solution Start Date 12/13/17 Start Time 04:36 End Date 12/13/17 End time 13:30 Total Infusion Time 534 Metronidazole (Flagyl) 500 mg in 100 mls @ 100 mls/hr IVPB STAT STA PRN Reason: Protocol Stop: 12/13/17 04:23 Last Admin: 12/13/17 04:47 Dose: 100 mls/hr eMAR Start Stop Document 12/13/17 04:47 PCO (Rec: 12/13/17 04:48 PCO [facility] [id number] Intravenous Solution Start Date 12/13/17 Start Time 04:47 End Date 12/13/17 End time 05:50 Total Infusion Time 63 Ceftriaxone Sodium (Rocephin 1 Gram Ivpb) 1 gm in 100 mls @ 200 mls/hr IVPB STAT STA PRN Reason: Protocol Stop: 12/13/17 03:53 Last Admin: 12/13/17 03:43 Dose: 200 mls/hr eMAR Start Stop Document 12/13/17 03:43 AD (Rec: 12/13/17 03:43 AD [facility] [email or web address] Intravenous Solution Start Date 12/13/17 Start Time 03:43 Ciprofloxacin (Cipro 400mg/200ml Dsw) 400 mg in 200 mls @ 133.3 mls/hr IVPB Q12 SABINA PRN Reason: Protocol Stop: 12/13/17 14:16 Last Admin: 12/13/17 13:08 Dose: 133.3 mls/hr eMAR Start Stop Document 12/13/17 13:08 MCV (Rec: 12/13/17 13:08 MCV [id number]) Intravenous Solution Start Date 12/13/17 Start Time 13:08 Ondansetron HCl (Zofran Inj) 4 mg IVP STAT STA Stop: 12/13/17 00:13 Last Admin: 12/13/17 00:55 Dose: 4 mg IVP Administration Document 12/13/17 00:55 AD (Rec: 12/13/17 00:55 AD [facility] [email or web address] Charges for Administration # of IVP Administrations 1 Pantoprazole Sodium (Protonix Inj) 40 mg IVP DAILY [facility] Last Admin: 12/14/17 09:42 Dose: 40 mg IVP Administration Document 12/14/17 09:42 MJO (Rec: 12/14/17 09:42 MJO [id number]) Charges for Administration # of IVP Administrations 1 - Scribe Statement The provider has reviewed the documentation as recorded by the Scribe Humaira Marsh All medical record entries made by the Scribe were at my direction and personally dictated by me. I have reviewed the chart and agree that the record accurately reflects my personal performance of the history, physical exam, medical decision making, and the department course for this patient. I have also personally directed, reviewed, and agree with the discharge instructions and disposition. Disposition/Present on Arrival - Present on Arrival Any Indicators Present on Arrival: No History of DVT/PE: No History of Uncontrolled Diabetes: No Urinary Catheter: No History Surgical Site Infection Followin - Disposition Have Diagnosis and Disposition been Completed?: Yes Diagnosis: Crohn's disease, Abdominal pain Disposition: HOSPITALIZED Disposition Time: 03:05 Condition: FAIR
[2017-12-13] MEDS ORDERED: Sodium Chloride 0.9% 1,000 ML IV STA ×2 (00:12→03:18)
[2017-12-13] MEDS ORDERED: HYDROmorphone 0.5 mg/0.5 ml ISec IVP STA ×3 (00:13→03:21)
[2017-12-13 00:58] LABS: BASO # 0.03 K/mm3 (0.0-2.0); BASO % 0.3 % (0.0-3.0); EOS # 0.2 (0.0-0.7); EOS % 2.7 % (1.5-5.0); GRAN # 5.59 (1.4-6.5); GRAN % 64.8 % (50.0-68.0); HEMOGLOBIN 13.6 g/dL (12.0-16.0); LYMPH # 2.3 (1.2-3.4); LYMPH % 27.1 % (22.0-35.0); MEAN CELL VOLUME 85.9 fl (80.0-105.0); MEAN PLATELET VOLUME 11.1 fl (7.0-11.0); MONO # 0.4 (0.1-0.6); MONO % 5.1 % (1.0-6.0); RBC 4.53 10^6/uL (3.5-6.1); RED CELL DISTRIBUTION WIDTH 13.6 % (11.5-14.5); WHITE BLOOD COUNT 8.6 10^3/ul (4.5-11.0)
[2017-12-13 01:09] LABS: INR 1.19 (0.93-1.08); PARTIAL THROMBOPLASTIN TIME 32.1 Seconds (25.1-36.5); PROTHROMBIN TIME 13.6 SECONDS (9.4-12.5)
[2017-12-13 01:10] LABS: ALB/GLOB RATIO 1.2 (1.1-1.8); ALBUMIN 4.5 g/dL (3.0-4.8); ALT/SGPT 52 U/L (7-56); AMYLASE 76 U/L (35-125); AST/SGOT 46 U/L (14-36); BLOOD UREA NITROGEN 8 mg/dL (7-21); CALCIUM 10.1 mg/dL (8.4-10.5); GFR AFRICAN-AMERICAN > 60; GFR NON-AFRICAN AMERICAN > 60; LIPASE 137 U/L (23-300)
[2017-12-13 01:22] LABS: TROPONIN I < 0.01 ng/mL
[2017-12-13] MEDS ORDERED: Iohexol 350 MG/100 ML VIAL ONE (01:48)
[2017-12-13] MEDS ORDERED: metroNIDAZOLE IV 500 mg/100 ml 500 MG/100 ML BAG IVPB STA (03:24)
[2017-12-13] MEDS ORDERED: cefTRIAXone 1 gm 1 GM/100 ML BAG IVPB STA (03:24)
[2017-12-13 03:32] LABS: PH,URINE 7.5 (4.7-8.0); URINE BILIRUBIN NEGATIVE (NEGATIVE); URINE BLOOD NEGATIVE (NEGATIVE); URINE GLUCOSE (UA) NEGATIVE (NEGATIVE); URINE LEUKOCYTE ESTERASE TRACE Leu/uL (NEGATIVE); URINE PROTEIN NEGATIVE mg/dL (<30 mg/dL); URINE UROBILINOGEN 0.2 E.U./dL (<1 E.U./dL)
[2017-12-13 03:35] LABS: URINE APPEARANCE CLEAR (CLEAR); URINE COLOR YELLOW (YELLOW)
[2017-12-13 04:41] LABS: URINE BACTERIA OCC (NEG); URINE EPITHELIAL CELLS 0 - 2 /hpf (0-5); URINE RBC 0 - 2 /hpf (0-2)
[2017-12-13] MEDS: HYDROmorphone 0.5 mg/0.5 ml ISec IVP PRN ×3 (06:11→19:48)
--- NOTE | 2017-12-13 09:20 | CT ---
PROCEDURE: CT Abdomen and Pelvis with contrast HISTORY: Abdominal pain COMPARISON: 01/11/2017. TECHNIQUE: CT scan of the abdomen and pelvis was performed after administration of intravenous contrast. Oral contrast was not administered. Coronal and sagittal reformatted images were obtained. Contrast dose: 100 mL Omnipaque 350 Radiation dose: Total exam DLP = 998.24 MGy-cm. This CT exam was performed using one or more of the following dose reduction techniques: Automated exposure control, adjustment of the mA and/or kV according to patient size, and/or use of iterative reconstruction technique. FINDINGS: LOWER THORAX: The visualized lungs are clear. LIVER: There is mild hepatomegaly and diffuse fatty infiltration in the liver. No gross lesion or ductal dilatation. GALLBLADDER AND BILE DUCTS: The gallbladder is markedly distended. No calcified gallstones. PANCREAS: Normal in size with homogeneous enhancement. No gross lesion or ductal dilatation. SPLEEN: Mild splenomegaly with homogeneous enhancement. ADRENALS: No discrete nodule. KIDNEYS AND URETERS: Normal in size with homogeneous enhancement. No hydronephrosis. No solid mass. VASCULATURE: Unremarkable. No aortic aneurysm. BOWEL: Status post right hemicolectomy and ileotransverse anastomosis. There is fluid in the stomach. There are fluid-filled small bowel loops. There is also fluid in the descending colon. No bowel dilatation or obstruction. There are multiple surgical clips in the abdomen. PERITONEUM: No free fluid. No free air. LYMPH NODES: No enlarged lymph nodes. BLADDER: Normal in appearance. REPRODUCTIVE: The uterus is normal in size. BONES: No acute fracture. Within normal limits for the patient's age. OTHER FINDINGS: None. IMPRESSION: 1. The gallbladder is markedly distended. No CT evidence for calcified gallstones. Please correlate with right upper quadrant ultrasound examination. 2.Mild hepatosplenomegaly and fatty liver. 3. Status post right hemicolectomy and ileotransverse anastomosis, fluid in the stomach, small bowel loops and ascending colon could represent nonspecific infectious/ inflammatory enteritis. Clinical follow-up is advised. A preliminary report was provided by [employer].
[2017-12-13] MEDS ORDERED: HYDROmorphone 0.5 mg/0.5 ml ISec IVP PRN (12:43)
[2017-12-13] MEDS ORDERED: Ciprofloxacin 400mg/200ml D5W 400 MG/200 ML BAG IVPB SCH (12:45)
--- NOTE | 2017-12-13 13:03 | CARD ---
APPROVED REPORT EKG Measurement Heart [id number] MI [id number] [id number] <Conclusion> Normal sinus rhythm NSSTW changes
--- NOTE | 2017-12-13 13:06 | US ---
HISTORY: Abdominal pain COMPARISON: CT abdomen and pelvis was performed earlier the same day. TECHNIQUE: Grayscale imaging was performed. FINDINGS: LIVER: Measures 18.2 cm. There is mild diffuse increased echogenicity of the liver parenchyma. No mass. No intrahepatic bile duct dilatation. GALLBLADDER: There are no gallstones, wall thickening or pericholecystic fluid. The sonographic Key's sign is negative. COMMON BILE DUCT: Measures 4.2 mm. No stones. No dilatation. PANCREAS: Normal in size and echotexture. No mass. No ductal dilatation. RIGHT KIDNEY: Measures 10.9cm. Normal echogenicity. No calculus, mass, or hydronephrosis. LEFT KIDNEY: Measures 11.8cm. Normal echogenicity. No calculus, mass, or hydronephrosis. SPLEEN: The spleen is enlarged and measures 14.1 cm. AORTA: No aneurysmal dilatation. IVC: Unremarkable. OTHER FINDINGS: None. IMPRESSION: Mild hepatosplenomegaly. Fatty liver.
[2017-12-13] MEDS: Enoxaparin 40 mg Syringe SC SCH (13:07)
--- NOTE | 2017-12-13 13:45 | CP.PCM.CON ---
<Adam Rudolph - Last Filed: 12/13/17 13:29> History of Present Illness - History of Present Illness History of Present Illness: PGY-4 GI Fellow Consult Note Mrs. Whitley is a 46 yo WF with ileal colonic Crohn's (c/b R Hemicolectomy w/ small bowel resection with ileal-colonic anastamosis, h/o non-compliance with mesalamine), PUD, DM, HTN, presenting with abd pain and nausea/vomiting. She states over the last several days she has had progressively worse LLQ pain, sharp, radiating into epigastrum and chest, associated with non-bloody, occasionally bilious emesis. States she dose not know what makes symptoms better or worse but states she was recently placed on ciprofloxacin as outpatient for possible UTI but states that did not relieve her symptoms. As far as her IBD, she states that she is supposed to be on mesalamine but states that she doesn't take it everyday as she states that she normally feels OK and just taked it intermittently. She denies any F/C, SOB, diarrhea or loose stools. 12 point ROS negative other than stated above MHx Ileal Colonic Crohn's c/b R Hemicolectomy w/small bowel resection with ileal- colonic anastamosis, h/o non-compliance with mesalamine PUD, DM, HTN SurgHx R Hemicolectomy w/small bowel resection with ileal-colonic anastamosis Hysterectomy Meds Gabapentin Levofloxacin Diazepam Oxycodone Pentasa (mesalamine those non-compliant) FamHx Mother and Sis with gall bladded disease SocHx Denies EtOH, Illicits All Morphine Past Patient History - Infectious Disease Hx of Infectious Diseases: None - Tetanus Immunizations Tetanus Immunization: Up to Date - Past Social History Smoking Status: Former Smoker - CARDIAC Hx Cardiac Disorders: Yes Hx Mitral Valve Prolapse: Yes - PULMONARY Hx Respiratory Disorders: No - NEUROLOGICAL Hx Neurological Disorder: No - HEENT Hx HEENT Problems: No - RENAL Hx Chronic Kidney Disease: No - ENDOCRINE/METABOLIC Hx Endocrine Disorders: No - HEMATOLOGICAL/ONCOLOGICAL Hx Blood Disorders: No - INTEGUMENTARY Hx Dermatological Problems: No - MUSCULOSKELETAL/RHEUMATOLOGICAL Hx Musculoskeletal Disorders: Yes Hx Arthritis: Yes Hx Back Pain: Yes Hx Falls: No Hx Herniated Disk: Yes - GASTROINTESTINAL Hx Gastrointestinal Disorders: Yes Hx Crohn's Disease: Yes - GENITOURINARY/GYNECOLOGICAL Hx Genitourinary Disorders: No - PSYCHIATRIC Hx Depression: No Hx Emotional Abuse: No Hx Physical Abuse: No Hx Substance Use: No - SURGICAL HISTORY Hx Hysterectomy: Yes Other/Comment: Right Ovary rupture - ANESTHESIA Hx Anesthesia Reactions: No Hx Malignant Hyperthermia: No Meds Allergies/Adverse Reactions: Allergies Allergy/AdvReac Type Severity Reaction Status Date / Time morphine Allergy RASH Verified 01/11/17 15:28 - Medications Medications: Current Medications Acetaminophen (Tylenol 325mg Tab) 650 mg PO Q4 PRN PRN Reason: Fever >100.4 F Enoxaparin Sodium (Lovenox) 40 mg SC DAILY SABINA PRN Reason: Protocol Last Admin: 12/13/17 13:07 Dose: 40 mg Hydromorphone HCl (Dilaudid) 2 mg IVP Q6H PRN PRN Reason: Pain, severe (8-10) Sodium Chloride (Sodium Chloride 0.9%) 1,000 mls @ 100 mls/hr IV .Q10H STA Stop: 12/13/17 13:17 Last Admin: 12/13/17 04:36 Dose: 100 mls/hr Ciprofloxacin (Cipro 400mg/200ml Dsw) 400 mg in 200 mls @ 133.3 mls/hr IVPB Q12 SABINA PRN Reason: Protocol Stop: 12/13/17 14:16 Last Admin: 12/13/17 13:08 Dose: 133.3 mls/hr Metronidazole (Flagyl) 500 mg in 100 mls @ 100 mls/hr IVPB Q8 SABINA PRN Reason: Protocol Mesalamine (Pentasa) 1,000 mg PO QID [facility] Ondansetron HCl (Zofran Inj) 4 mg IVP Q6H PRN PRN Reason: Nausea/Vomiting Last Admin: 12/13/17 11:34 Dose: 4 mg Pantoprazole Sodium (Protonix Inj) 40 mg IVP DAILY [facility] Last Admin: 12/13/17 13:08 Dose: 40 mg Pantoprazole Sodium (Protonix Inj) 40 mg IVP DAILY [facility] Sucralfate (Carafate Oral Susp) 1 gm PO 0630,1130,1630,2200 [facility] Tramadol HCl (Ultram) 50 mg PO TID PRN PRN Reason: Pain, moderate (4-7) Physical Exam - Constitutional Appears: Well, Non-toxic, No Acute Distress - Head Exam Head Exam: ATRAUMATIC, NORMAL INSPECTION - Eye Exam Eye Exam: EOMI. absent: Scleral icterus - ENT Exam ENT Exam: Normal External Ear Exam, Normal Oropharynx - Respiratory Exam Respiratory Exam: absent: Accessory Muscle Use, Prolonged Expiratory Phase - Cardiovascular Exam Cardiovascular Exam: RRR. absent: Diastolic murmur, Systolic Murmur - GI/Abdominal Exam GI & Abdominal Exam: Normal Bowel Sounds, Soft, Tenderness (TTP in LLQ w/o guarding, surgical scar on R side of abd). absent: Diminished Bowel Sounds, Distended, Firm, Guarding, Hernia, Hyperactive Bowel Sounds - Rectal Exam Rectal Exam: Deferred - Neurological Exam Neurological exam: Alert, CN II-XII Intact, Oriented x3 - Psychiatric Exam Psychiatric exam: Anxious, Normal Affect - Skin Skin Exam: Dry, Normal Color Results - Vital Signs Recent Vital Signs: Last Vital Signs Temp 97.7 F 12/13/17 07:51 Pulse 20 L 12/13/17 07:51 Resp 20 12/13/17 07:51 BP 111/67 12/13/17 07:51 Pulse Ox 97 12/13/17 06:00 - Labs Result Diagrams: 12/13/17 00:40 12/13/17 00:40 Assessment & Plan - Assessment and Plan (Free Text) Assessment: Abd Pain, N/V: Suspect related to Crohn's flare related to non-compliance with mesalamine. No elevated WBCs, nor findings on US and labs to point to other etiology. GB distended on CT but no stones seen on US. Plan: Start mesalamine 1000 mg QID PPI Advance diet as tolerated Checking ESR, CRP in AM Can continue Abx as is for now, f/u UCx <Zoe Jarrell V - Last Filed: 12/13/17 22:35> Meds - Medications Medications: Current Medications Acetaminophen (Tylenol 325mg Tab) 650 mg PO Q4 PRN PRN Reason: Fever >100.4 F Enoxaparin Sodium (Lovenox) 40 mg SC DAILY SABINA PRN Reason: Protocol Last Admin: 12/13/17 13:07 Dose: 40 mg Hydromorphone HCl (Dilaudid) 2 mg IVP Q4H PRN PRN Reason: Pain, severe (8-10) Last Admin: 12/13/17 19:48 Dose: 2 mg Metronidazole (Flagyl) 500 mg in 100 mls @ 100 mls/hr IVPB Q8 SABINA PRN Reason: Protocol Last Admin: 12/13/17 14:12 Dose: 100 mls/hr Mesalamine (Pentasa) 1,000 mg PO QID [facility] Last Admin: 12/13/17 17:53 Dose: 1,000 mg Ondansetron HCl (Zofran Inj) 4 mg IVP Q6H PRN PRN Reason: Nausea/Vomiting Last Admin: 12/13/17 11:34 Dose: 4 mg Pantoprazole Sodium (Protonix Inj) 40 mg IVP DAILY [facility] Last Admin: 12/13/17 13:08 Dose: 40 mg Pantoprazole Sodium (Protonix Inj) 40 mg IVP DAILY [facility] Sucralfate (Carafate Oral Susp) 1 gm PO 0630,1130,1630,2200 [facility] Last Admin: 12/13/17 17:55 Dose: 1 gm Tramadol HCl (Ultram) 50 mg PO TID PRN PRN Reason: Pain, moderate (4-7) Results - Vital Signs Recent Vital Signs: Last Vital Signs Temp 97.7 F 12/13/17 07:51 Pulse 20 L 12/13/17 07:51 Resp 20 12/13/17 07:51 BP 111/67 12/13/17 07:51 Pulse Ox 97 12/13/17 06:00 - Labs Result Diagrams: 12/13/17 00:40 12/13/17 00:40 Attending/Attestation - Attestation I have personally seen and examined this patient.: Yes I have fully participated in the care of the patient.: Yes I have reviewed all pertinent clinical information: Yes Notes (Text): This is an addendum to GI consult report dictated by the GI fellow.The patient was seen and examined earlier. Medical records, lab studies, imagings were reviewed. Last 24 hours events reviewed. Agreed with the above treatment plan as outlined in GI Fellow 's notes the with the addition of the following this 46-year-old patient with Crohn's disease was admitted with worsening her abdominal pain on examination patient has significant ten right upper quadrant and aldrant area. Normal, pain with her medications Patient was on Pentasa and she was not taking it on regular basis History of peptic ulcer dise on low-dose PPI Previous EGD and colonoscopy reportere reviewed Patient refused 6-MP and biologic in the past Would request ultrasound scan of abdomen, continue PPI high-dose, restart mesalamine Liquid diet We'll continue to closely follow up care and suggest further mement based on clinical course 12/13/17 22:23
[2017-12-13] MEDS: Mesalamine ER Cap 500 MG PO SCH ×3 (14:12→23:16)
[2017-12-13] MEDS: metroNIDAZOLE IV 500 mg/100 ml 500 MG/100 ML BAG IVPB SCH ×2 (14:12→23:16)
[2017-12-13] MEDS: Sucralfate 1 gm/10 ml Oral Susp UD PO SCH ×2 (17:55→23:15)
[2017-12-14] MEDS: HYDROmorphone 0.5 mg/0.5 ml ISec IVP PRN ×6 (00:05→22:20)
[2017-12-14] MEDS: metroNIDAZOLE IV 500 mg/100 ml 500 MG/100 ML BAG IVPB SCH ×3 (06:07→22:18)
--- NOTE | 2017-12-14 08:57 | HP ---
CHIEF COMPLAINT: Abdominal pain, flare up of Crohn disease. HISTORY OF PRESENT ILLNESS: This is a 46-year-old woman, I have known for many years, but has lately been seeing Dr. Armain Stout in the office. She called a few days ago complaining of worsening abdominal pain. Her Crohn disease usually responds to Cipro and Flagyl, but symptoms persisted, forcing her to come to the emergency room late on [place] Day night. She was worked up, and I received a call early this morning at approximately 3 a.m. regarding her results and for admission. Dr. Jarrell is her automation qa analyst. The patient has been difficult to manage her Crohn only in that she had major surgery in the past, but has since refused additional treatment, 6MP, DMARD's, Remicade, etc. PAST MEDICAL HISTORY: Significant for chronic back pain for which she takes chronic opioids as well as arthritis of spine. There is a question of a history of mitral valve prolapse. She is also status post right sided colon resection as well as a terminal ileum for Crohn many years ago with Dr. Hill. SOCIAL HISTORY: She is a former smoker, does not drink alcohol. ALLERGIES: SHE SAID TO BE ALLERGIC TO MORPHINE, WHICH CAUSED A RASH IN THE PAST. MEDICATIONS: Her only medications at the time of admission included Cipro and Flagyl as mentioned above, Movantik for chronic constipation, oxycodone 10 mg four times daily and Valium 10 mg as needed for the back pain. PHYSICAL EXAMINATION GENERAL: The patient was seen in room 560, bed 1, this morning; she was requesting pain medicines, which she said was actually for both abdominal pain as well as back pain, but then sometimes shoulder pain and sometimes leg pain as well. She is awake, alert and clear, and oriented. HEAD: Unremarkable. Conjunctivae are pink. Mucous membranes are moist. NECK: Supple, without masses. Thyroid is nonpalpable. LUNGS: Clear to auscultation both right and left. HEART: Regular. Not tachycardic. I did not hear any murmurs. ABDOMEN: Diffusely tender. Bowel sounds were present, appeared normal. There was more tenderness perhaps on the right lower quadrant, but then also on the left side in the left lower quadrant as well. NEUROLOGIC: Normal, showed no focal motor deficits. LABORATORY DATA: Labs showed white count to be normal, and H and H are 13 and 38. Coags showed INR of 1.19 . Chemistries were essentially unremarkable. There is minimal elevation in AST to 46 and a slight elevation of random glucose to 119. CT scan of the abdomen was done in the emergency room as well as an ultrasound of the abdomen done later this morning. CT scan showed dilated gallbladder, but no evidence of calcified stones. There is mild hepatosplenomegaly, fatty liver and status post right hemicolectomy and ileotransverse colon anastomosis. Ultrasound of the abdomen confirmed fatty liver and hepatosplenomegaly. The common bile duct was 4.4 mm. The gallbladder showed no stones, thickening or pericholecystic fluid, and sonographic Key sign was negative. IMPRESSION: 1. Crohn disease. 2. Chronic pain syndrome related to Crohn's as well as her back and other maladies. 3. 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 4. Chronic opioid use. PLAN: We will start the patient on Cipro and Flagyl. I spoke to her about DMARD type agents and immunomodulators to be further evaluated by GI. I also spoke to her about the prior recommendations of using medicines such as 6-mercaptopurine to get better control with her Crohn's, but the patient was very resistant to all of these things, just wanting to be left alone and continue her current course of medicines and analgesics. I asked her about workup of her chronic back symptoms. She reports that she had a MRI at [facility] during a hospitalization a little over a year ago; at that time, surgery was recommended to be done rather swiftly, but she declined. There is no MRI on records here at [facility]; therefore, I will repeat the MRI and I will check her status. I spoke to the patient about pain management lead which she declined at this time, requesting Dilaudid 4 mg every 4 hours for pain control. We will follow with labs. Continue Cipro and Flagyl, and discuss with GI. Tristen Stout MD [place]
[2017-12-14] MEDS: Enoxaparin 40 mg Syringe SC SCH (09:42)
[2017-12-14] MEDS: Mesalamine ER Cap 500 MG PO SCH ×4 (09:43→22:19)
--- NOTE | 2017-12-14 12:00 | MRI ---
PROCEDURE: MR LUMBAR SPINE WITHOUT CONTRAST HISTORY: Low back pain. COMPARISON: None available. TECHNIQUE: Multiecho multiplanar sequences were performed through the lumbar spine without the use of intravenous contrast. . FINDINGS: No acute compression fractures no retropulsed fragments. Vertebral bodies exhibit normal stature. Vertebral bodies and facets normally aligned. Vertebral body heights are preserved. Marrow signal unremarkable. Conus medullaris unremarkable at the level of Paraspinal soft tissues are unremarkable. T12-L1: Minor age related disc desiccation. Disc space height maintained. No disc herniation or significant disc bulge. . Central canal and exit foramina appear adequate. L1-2: Minor age related disc desiccation. Disc space height maintained. No disc herniation or significant disc bulge. . Central canal and exit foramina appear adequate. L2-3: Minor age related disc desiccation. Disc space height maintained. No disc herniation or significant disc bulge. . Central canal and exit foramina appear adequate. L3-4: There is adequate disc height and hydration. No disc herniation or significant disc bulge of. The overall central canal appears adequate. Facets are slightly overgrown. Exit foramina adequate. L4-5: No disc there is mild disc protrusion indents the ventral surface of thecal sac reaching the nearly exiting intrathecal and extra thecal descending S1 nerve roots. The overall central bony canal is adequate. . Facet joints are slightly overgrown. Exit foramina adequate. L5-S1: Mild age related disc desiccation. Disc space height maintained. Small central and bilateral disc bulge indents the ventral surface of the thecal sac however no significant canal compromise nor nerve root compression. Facet joints slightly overgrown. Central canal and exit foramina are quite capacious. 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 OTHER FINDINGS: None. IMPRESSION: There is a small central and bilateral disc protrusion L4-L5 level which does indent the ventral surface of the thecal sac and reaches the ventral surfaces of the descending S1 nerve roots as described. Central canal is it is adequate. Minor degenerative changes seen at the L5-S1 level.
[2017-12-14] MEDS: Sucralfate 1 gm/10 ml Oral Susp UD PO SCH ×3 (14:08→22:19)
--- NOTE | 2017-12-14 16:40 | CP.PCM.PN ---
<Adam Rudolph - Last Filed: 12/14/17 16:41> Subjective - Date & Time of Evaluation Date of Evaluation: 12/14/17 Time of Evaluation: 14:00 - Subjective Subjective: PGY-4 GI Fellow Progress Note Pt states abd pain mildly improved but only feel comfortable taking liquids PO for now. Denies f/c, n/v. 5 point ROS negative other than stated above Objective - Vital Signs/Intake and Output Vital Signs (last 24 hours): Temp Pulse Resp BP Pulse Ox 97.4 F L 86 20 99/60 L 98 12/14/17 06:00 12/14/17 06:00 12/14/17 06:00 12/14/17 06:00 12/14/17 06:00 - Medications Medications: Current Medications Acetaminophen (Tylenol 325mg Tab) 650 mg PO Q4 PRN PRN Reason: Fever >100.4 F Enoxaparin Sodium (Lovenox) 40 mg SC DAILY SABINA PRN Reason: Protocol Last Admin: 12/14/17 09:42 Dose: 40 mg Hydromorphone HCl (Dilaudid) 2 mg IVP Q4H PRN PRN Reason: Pain, severe (8-10) Last Admin: 12/14/17 14:16 Dose: 2 mg Metronidazole (Flagyl) 500 mg in 100 mls @ 100 mls/hr IVPB Q8 SABINA PRN Reason: Protocol Last Admin: 12/14/17 14:08 Dose: 100 mls/hr Mesalamine (Pentasa) 1,000 mg PO QID [facility] Last Admin: 12/14/17 14:08 Dose: 1,000 mg Ondansetron HCl (Zofran Inj) 4 mg IVP Q6H PRN PRN Reason: Nausea/Vomiting Last Admin: 12/14/17 14:15 Dose: 4 mg Pantoprazole Sodium (Protonix Inj) 40 mg IVP DAILY [facility] Last Admin: 12/14/17 09:42 Dose: Not Given Sucralfate (Carafate Oral Susp) 1 gm PO 0630,1130,1630,2200 [facility] Last Admin: 12/14/17 14:08 Dose: 1 gm Tramadol HCl (Ultram) 50 mg PO TID PRN PRN Reason: Pain, moderate (4-7) - Labs Labs: PT 13.6 SECONDS (9.4-12.5) H 12/13/17 00:40 INR 1.19 (0.93-1.08) H 12/13/17 00:40 APTT 32.1 Seconds (25.1-36.5) 12/13/17 00:40 - Constitutional Appears: Well, Non-toxic - Eye Exam Eye Exam: EOMI. absent: Conjunctival injection - Cardiovascular Exam Cardiovascular Exam: REGULAR RHYTHM, RRR - GI/Abdominal Exam GI & Abdominal Exam: Soft, Tenderness (mildly ttp in epigastrum and LLQ w/o guarding), Normal Bowel Sounds. absent: Distended, Firm, Guarding, Rigid Assessment and Plan - Assessment and Plan (Free Text) Assessment: Abd Pain, N/V: Suspect related to Crohn's flare related to non-compliance with mesalamine. No elevated WBCs, nor findings on US and labs to point to other etiology. GB distended on CT but no stones seen on US. 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 Plan: Cont mesalamine 1000 mg QID PPI Advance diet as tolerated, liquids for now Can continue Abx as is for now <Zoe Jarrell V - Last Filed: 12/15/17 00:04> Objective - Vital Signs/Intake and Output Vital Signs (last 24 hours): Temp Pulse Resp BP Pulse Ox 97.7 F 83 20 116/66 96 12/14/17 22:37 12/14/17 22:37 12/14/17 22:37 12/14/17 22:37 12/14/17 22:37 - Medications Medications: Current Medications Acetaminophen (Tylenol 325mg Tab) 650 mg PO Q4 PRN PRN Reason: Fever >100.4 F Enoxaparin Sodium (Lovenox) 40 mg SC DAILY SABIAN PRN Reason: Protocol Last Admin: 12/14/17 09:42 Dose: 40 mg Hydromorphone HCl (Dilaudid) 2 mg IVP Q4H PRN PRN Reason: Pain, severe (8-10) Last Admin: 12/14/17 22:20 Dose: 2 mg Metronidazole (Flagyl) 500 mg in 100 mls @ 100 mls/hr IVPB Q8 SABINA PRN Reason: Protocol Last Admin: 12/14/17 22:18 Dose: 100 mls/hr Mesalamine (Pentasa) 1,000 mg PO QID [facility] Last Admin: 12/14/17 22:19 Dose: 1,000 mg Ondansetron HCl (Zofran Inj) 4 mg IVP Q6H PRN PRN Reason: Nausea/Vomiting Last Admin: 12/14/17 14:15 Dose: 4 mg Pantoprazole Sodium (Protonix Inj) 40 mg IVP DAILY [facility] Last Admin: 12/14/17 09:42 Dose: Not Given Sucralfate (Carafate Oral Susp) 1 gm PO 0630,1130,1630,2200 [facility] Last Admin: 12/14/17 22:19 Dose: 1 gm Tramadol HCl (Ultram) 50 mg PO TID PRN PRN Reason: Pain, moderate (4-7) - Labs Labs: PT 13.6 SECONDS (9.4-12.5) H 12/13/17 00:40 INR 1.19 (0.93-1.08) H 12/13/17 00:40 APTT 32.1 Seconds (25.1-36.5) 12/13/17 00:40 Attending/Attestation - Attestation I have personally seen and examined this patient.: Yes I have fully participated in the care of the patient.: Yes I have reviewed all pertinent clinical information, including history, physical exam and plan: Yes Notes (Text): This is an addendum to GI progress report dictated by the GI Fellow.The patient was seen and examined earlier. Medical records, lab studies, imagings were reviewed. Last 24 hours events reviewed. Agreed with the above treatment plan as outlined in GI Fellow 's notes the with the addition of the following 12/15/17 00:04
--- NOTE | 2017-12-14 22:59 | PN ---
DATE: 12/14/2017 DAILY PROGRESS NOTE SUBJECTIVE: The patient was seen this Sunday morning in room 566, bed 3. Notes from GI consultants are appreciated. The patient is on Pentasa as well as Cipro and Flagyl and receiving narcotic analgesics for her chronic pain. Yesterday, on admission, she complained of back pain, low back, so today she is scheduled for an MRI. She also reports a significant amount of upper back and cervical C-spine pain. PHYSICAL EXAMINATION: GENERAL: She is awake, alert and in good spirits. HEART: Regular, not tachycardia. EXTREMITIES: Show no edema. LUNGS: Clear. ABDOMEN: Soft. Bowel sounds are present. There is no guarding or rebound tenderness. IMPRESSION: 1. Acute exacerbation of Crohn's disease. 2. Low back pain. 3. History of cervical spine back pain. 4. Chronic pain syndrome. 5. Chronic opiate use. 7. Noncompliance with medication regimen. PLAN: Importance of sticking with Pentasa and medications for Crohn's is explained to the patient again. I counseled her for long-term opiate use. I explained to her that in the near future, [facility] will be going Dilaudid free and there will be no such intravenous medicine available, so we will need to use other medications for her pain, especially in view of this reported allergy to morphine. Tristen Stout MD
[2017-12-15] MEDS: HYDROmorphone 0.5 mg/0.5 ml ISec IVP PRN ×6 (01:53→23:56)
[2017-12-15] MEDS: metroNIDAZOLE IV 500 mg/100 ml 500 MG/100 ML BAG IVPB SCH ×3 (05:21→21:23)
[2017-12-15] MEDS: Sucralfate 1 gm/10 ml Oral Susp UD PO SCH ×5 (08:11→21:22)
[2017-12-15] MEDS: Enoxaparin 40 mg Syringe SC SCH (11:07)
[2017-12-15] MEDS: Mesalamine ER Cap 500 MG PO SCH ×4 (11:08→21:22)
[2017-12-16] MEDS: HYDROmorphone 0.5 mg/0.5 ml ISec IVP PRN ×5 (03:30→21:15)
[2017-12-16] MEDS: metroNIDAZOLE IV 500 mg/100 ml 500 MG/100 ML BAG IVPB SCH ×3 (05:26→21:16)
[2017-12-16] MEDS: Enoxaparin 40 mg Syringe SC SCH (11:59)
[2017-12-16] MEDS: Sucralfate 1 gm/10 ml Oral Susp UD PO SCH ×3 (11:59→20:54)
[2017-12-16] MEDS: Mesalamine ER Cap 500 MG PO SCH ×4 (12:00→21:19)
--- NOTE | 2017-12-16 12:40 | PN ---
DATE: 12/15/2017 DAILY PROGRESS NOTE SUBJECTIVE: The patient is a 46-year-old female, who was admitted with an exacerbation of her Crohn'S disease. She was admitted 10/13/2017. She is being followed by Dr. Jarrell, the structural iron worker. The patient admits to being noncompliant with her medications prior to this admission. However, she states she is afraid to take them because of side effects of possible cancer/lymphoma. When seen, the patient is awake, alert and oriented. She tried eating some scrambled eggs for breakfast this morning, which was followed by several bouts of watery diarrhea. Vital signs show that she is afebrile, blood pressure of 111/73, heart rate of 79. Today, blood cultures and urine cultures have been negative. X-ray of the lumbar spine showed L4-5 disk protrusion. For which she had been on opiates chronically in the past. So, the patient is receiving her medications. She is being followed closely and slowly hopeful of improving her diet so the patient can be discharged to home, hopefully with more compliance with her medications. Armani Stout MD
--- NOTE | 2017-12-16 13:06 | PN ---
DATE: 12/16/2017 SUBJECTIVE: The patient is a 46-year-old female who was admitted with exacerbation of Crohn disease. To date, her blood cultures and urine cultures have been negative. Her vital signs are stable. She is being followed by Dr. Jarrell, her embosser apprentice. She admits that she was noncompliant with her medications and compliance was discussed and urged to her during today's visit. She is awake, alert, and oriented. The patient states she still cannot tolerate any food. She had some chicken last night which was followed by diarrhea and right-sided abdominal pain. Scrambled eggs again this morning caused left-sided abdominal pain and more diarrhea. However, the patient has been up and ambulating in the ramos. We are continuing with the current medication and waiting slow improvement to the patient's Crohn exacerbation. Armani Stout MD
--- NOTE | 2017-12-16 16:36 | CP.PCM.PN ---
<Jhony Hinton - Last Filed: 12/16/17 16:32> Subjective - Date & Time of Evaluation Date of Evaluation: 12/16/17 Time of Evaluation: 13:30 - Subjective Subjective: PGY5 GI Follow-up Pt seen and examined bedside c/o diarrhea bloating +multiple loose BM ROS: 12 point ROS conducted Neg other than above Objective - Vital Signs/Intake and Output Vital Signs (last 24 hours): Temp Pulse Resp BP Pulse Ox 97.7 F 69 20 104/57 L 97 12/16/17 06:00 12/16/17 06:00 12/16/17 06:00 12/16/17 06:00 12/16/17 06:00 Intake and Output: 12/16/17 12/16/17 06:59 18:59 Intake Total 540 Balance 540 - Medications Medications: Current Medications Acetaminophen (Tylenol 325mg Tab) 650 mg PO Q4 PRN PRN Reason: Fever >100.4 F Enoxaparin Sodium (Lovenox) 40 mg SC DAILY [facility] PRN Reason: Protocol Last Admin: 12/16/17 11:59 Dose: 40 mg Hydromorphone HCl (Dilaudid) 2 mg IVP Q4H PRN PRN Reason: Pain, severe (8-10) Last Admin: 12/16/17 13:07 Dose: 2 mg Metronidazole (Flagyl) 500 mg in 100 mls @ 100 mls/hr IVPB Q8 [facility] PRN Reason: Protocol Last Admin: 12/16/17 14:41 Dose: 100 mls/hr Mesalamine (Pentasa) 1,000 mg PO QID [facility] Last Admin: 12/16/17 14:41 Dose: 1,000 mg Ondansetron HCl (Zofran Inj) 4 mg IVP Q6H PRN PRN Reason: Nausea/Vomiting Last Admin: 12/16/17 13:08 Dose: 4 mg Pantoprazole Sodium (Protonix Inj) 40 mg IVP DAILY [facility] Last Admin: 12/16/17 12:00 Dose: 40 mg Sucralfate (Carafate Oral Susp) 1 gm PO 0630,1130,1630,2200 [facility] Last Admin: 12/16/17 11:59 Dose: 1 gm Tramadol HCl (Ultram) 50 mg PO TID PRN PRN Reason: Pain, moderate (4-7) - Labs Labs: PT 13.6 SECONDS (9.4-12.5) H 12/13/17 00:40 INR 1.19 (0.93-1.08) H 12/13/17 00:40 APTT 32.1 Seconds (25.1-36.5) 12/13/17 00:40 - Constitutional Appears: Well, No Acute Distress - Head Exam Head Exam: ATRAUMATIC, NORMOCEPHALIC - Eye Exam Eye Exam: Normal appearance - ENT Exam ENT Exam: Mucous Membranes Moist, Normal Exam - Neck Exam Neck Exam: Normal Inspection - Respiratory Exam Respiratory Exam: Clear to Ausculation Bilateral, NORMAL BREATHING PATTERN. absent: Rales, Rhonchi, Wheezes, Respiratory Distress - Cardiovascular Exam Cardiovascular Exam: REGULAR RHYTHM, +S1, +S2 - GI/Abdominal Exam GI & Abdominal Exam: Soft, Normal Bowel Sounds. absent: Guarding, Rigid, Tenderness, Organomegaly, Rebound - Extremities Exam Extremities Exam: absent: Joint Swelling, Pedal Edema - Neurological Exam Neurological Exam: Alert, Awake, Oriented x3 - Psychiatric Exam Psychiatric exam: Normal Affect, Normal Mood - Skin Skin Exam: Dry, Intact, Normal Color, Warm Assessment and Plan - Assessment and Plan (Free Text) Assessment: Abd Pain, N/V: Suspect related to Crohn's flare related to non-compliance with mesalamine. No elevated WBCs, nor findings on US and labs to point to other etiology. GB distended on CT but no stones seen on US. 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 Plan: Cont mesalamine 1000 mg QID PPI Advance diet as tolerated, low residue imodium x1 a as per Dr. jarrell Can continue Abx as is for now D/W Dr. Jarrell <Zoe Jarrell V - Last Filed: 12/17/17 00:40> Objective - Vital Signs/Intake and Output Vital Signs (last 24 hours): Temp Pulse Resp BP Pulse Ox 98.2 F 68 16 101/53 L 98 12/16/17 22:07 12/16/17 22:07 12/16/17 22:07 12/16/17 22:07 12/16/17 22:07 Intake and Output: 12/16/17 12/17/17 18:59 06:59 Intake Total 240 Balance 240 - Medications Medications: Current Medications Acetaminophen (Tylenol 325mg Tab) 650 mg PO Q4 PRN PRN Reason: Fever >100.4 F Enoxaparin Sodium (Lovenox) 40 mg SC DAILY [facility] PRN Reason: Protocol Last Admin: 12/16/17 11:59 Dose: 40 mg Hydromorphone HCl (Dilaudid) 2 mg IVP Q4H PRN PRN Reason: Pain, severe (8-10) Last Admin: 12/16/17 21:15 Dose: 2 mg Metronidazole (Flagyl) 500 mg in 100 mls @ 100 mls/hr IVPB Q8 [facility] PRN Reason: Protocol Last Admin: 12/16/17 21:16 Dose: 100 mls/hr Mesalamine (Pentasa) 1,000 mg PO QID [facility] Last Admin: 12/16/17 21:19 Dose: 1,000 mg Ondansetron HCl (Zofran Inj) 4 mg IVP Q6H PRN PRN Reason: Nausea/Vomiting Last Admin: 12/16/17 21:14 Dose: 4 mg Pantoprazole Sodium (Protonix Inj) 40 mg IVP DAILY [facility] Last Admin: 12/16/17 12:00 Dose: 40 mg Sucralfate (Carafate Oral Susp) 1 gm PO 0630,1130,1630,2200 [facility] Last Admin: 12/16/17 20:54 Dose: 1 gm Tramadol HCl (Ultram) 50 mg PO TID PRN PRN Reason: Pain, moderate (4-7) - Labs Labs: PT 13.6 SECONDS (9.4-12.5) H 12/13/17 00:40 INR 1.19 (0.93-1.08) H 12/13/17 00:40 APTT 32.1 Seconds (25.1-36.5) 12/13/17 00:40 Attending/Attestation - Attestation I have personally seen and examined this patient.: Yes I have fully participated in the care of the patient.: Yes I have reviewed all pertinent clinical information, including history, physical exam and plan: Yes Notes (Text): This is an addendum to GI progress report dictated by the GI Fellow.The patient was seen and examined earlier. Medical records, lab studies, imagings were reviewed. Last 24 hours events reviewed. Agreed with the above treatment plan as outlined in GI Fellow 's notes the with the addition of the following feels slightly better Still has episodes of diarrhea Slowly advance the diet Discussed with the patient Re: Complains of medicat Previous EGD and colonos reports were reviewed and cussed with the patient Recommendations strongly ount GI follow-up as per her insurace plan 12/17/17 00:37
[2017-12-17] MEDS: Sucralfate 1 gm/10 ml Oral Susp UD PO SCH ×6 (03:04→21:50)
[2017-12-17] MEDS: HYDROmorphone 0.5 mg/0.5 ml ISec IVP PRN ×5 (04:46→20:39)
[2017-12-17] MEDS: metroNIDAZOLE IV 500 mg/100 ml 500 MG/100 ML BAG IVPB SCH ×3 (05:36→21:49)
[2017-12-17] MEDS: Mesalamine ER Cap 500 MG PO SCH ×4 (10:29→21:50)
[2017-12-17] MEDS: Enoxaparin 40 mg Syringe SC SCH (10:30)
[2017-12-17] MEDS: Cholestyramine 4 gm/Pkt UD PO SCH (10:31)
--- NOTE | 2017-12-17 15:51 | CP.PCM.PN ---
Subjective - Date & Time of Evaluation Date of Evaluation: 12/17/17 Time of Evaluation: 09:45 - Subjective Subjective: PGY-4 GI Fellow Progress Note Pt states abd pain slowly improving, less diarrhea. 5 point ROS negative other than stated above Objective - Vital Signs/Intake and Output Vital Signs (last 24 hours): Temp Pulse Resp BP Pulse Ox 98 F 71 20 102/61 96 12/17/17 14:00 12/17/17 14:00 12/17/17 14:00 12/17/17 14:00 12/17/17 14:00 Intake and Output: 12/17/17 12/17/17 06:59 18:59 Intake Total 540 Balance 540 - Medications Medications: Current Medications Acetaminophen (Tylenol 325mg Tab) 650 mg PO Q4 PRN PRN Reason: Fever >100.4 F Cholestyramine Resin (Questran) 4 gm PO DAILY [facility] Last Admin: 12/17/17 10:31 Dose: Not Given Enoxaparin Sodium (Lovenox) 40 mg SC DAILY [facility] PRN Reason: Protocol Last Admin: 12/17/17 10:30 Dose: 40 mg Hydromorphone HCl (Dilaudid) 2 mg IVP Q4H PRN PRN Reason: Pain, severe (8-10) Last Admin: 12/17/17 13:11 Dose: 2 mg Metronidazole (Flagyl) 500 mg in 100 mls @ 100 mls/hr IVPB Q8 [facility] PRN Reason: Protocol Last Admin: 12/17/17 13:35 Dose: 100 mls/hr Mesalamine (Pentasa) 1,000 mg PO QID [facility] Last Admin: 12/17/17 13:34 Dose: 1,000 mg Ondansetron HCl (Zofran Inj) 4 mg IVP Q6H PRN PRN Reason: Nausea/Vomiting Last Admin: 12/17/17 13:11 Dose: 4 mg Pantoprazole Sodium (Protonix Inj) 40 mg IVP DAILY [facility] Last Admin: 12/17/17 10:30 Dose: 40 mg Sucralfate (Carafate Oral Susp) 1 gm PO 0630,1130,1630,2200 [facility] Last Admin: 12/17/17 13:34 Dose: 1 gm Tramadol HCl (Ultram) 50 mg PO TID PRN PRN Reason: Pain, moderate (4-7) - Labs Labs: PT 13.6 SECONDS (9.4-12.5) H 12/13/17 00:40 INR 1.19 (0.93-1.08) H 12/13/17 00:40 APTT 32.1 Seconds (25.1-36.5) 12/13/17 00:40 - Constitutional Appears: Well, Non-toxic - Head Exam Head Exam: ATRAUMATIC, NORMAL INSPECTION - Eye Exam Eye Exam: EOMI. absent: Scleral icterus - Respiratory Exam Respiratory Exam: NORMAL BREATHING PATTERN. absent: Accessory Muscle Use, Prolonged Expiratory Phase - GI/Abdominal Exam GI & Abdominal Exam: Soft. absent: Distended, Firm, Guarding, Rigid, Tenderness Assessment and Plan - Assessment and Plan (Free Text) Assessment: Abd Pain, N/V, diarrhea: Suspect related to Crohn's flare related to non- compliance with mesalamine. No elevated WBCs, nor findings on US and labs to point to other etiology. GB distended on CT but no stones seen on US. 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 Diarrhea could be related to malabsortion of bile salts given h/o R colectomy Plan: Cont mesalamine 1000 mg QID PPI Advance diet as tolerated, low residue Start cholestyramine Can continue Abx for now D/W Dr. Jarrell
[2017-12-18] MEDS: HYDROmorphone 0.5 mg/0.5 ml ISec IVP PRN ×3 (02:39→10:57)
[2017-12-18] MEDS: metroNIDAZOLE IV 500 mg/100 ml 500 MG/100 ML BAG IVPB SCH ×2 (05:39→13:29)
[2017-12-18] MEDS: Sucralfate 1 gm/10 ml Oral Susp UD PO SCH ×2 (05:39→11:56)
--- NOTE | 2017-12-18 07:56 | CP.PCM.PN ---
Subjective - Date & Time of Evaluation Date of Evaluation: 12/18/17 Time of Evaluation: 07:30 - Subjective Subjective: PGY-4 GI Fellow Prog Note State still with some abd pain and loose stools though all improved/stable. Tolerating CLD and some soft foods. Eager for possible DC later today. Objective - Vital Signs/Intake and Output Vital Signs (last 24 hours): Temp Pulse Resp BP Pulse Ox 98.3 F 76 18 121/77 94 L 12/17/17 22:00 12/17/17 22:00 12/17/17 22:00 12/17/17 22:00 12/17/17 22:00 Intake and Output: 12/18/17 12/18/17 06:59 18:59 Intake Total 660 Balance 660 - Medications Medications: Current Medications Acetaminophen (Tylenol 325mg Tab) 650 mg PO Q4 PRN PRN Reason: Fever >100.4 F Cholestyramine Resin (Questran) 4 gm PO DAILY [facility] Last Admin: 12/17/17 10:31 Dose: Not Given Enoxaparin Sodium (Lovenox) 40 mg SC DAILY [facility] PRN Reason: Protocol Last Admin: 12/17/17 10:30 Dose: 40 mg Hydromorphone HCl (Dilaudid) 2 mg IVP Q4H PRN PRN Reason: Pain, severe (8-10) Last Admin: 12/18/17 06:22 Dose: 2 mg Metronidazole (Flagyl) 500 mg in 100 mls @ 100 mls/hr IVPB Q8 [facility] PRN Reason: Protocol Last Admin: 12/18/17 05:39 Dose: 100 mls/hr Mesalamine (Pentasa) 1,000 mg PO QID [facility] Last Admin: 12/17/17 21:50 Dose: 1,000 mg Ondansetron HCl (Zofran Inj) 4 mg IVP Q6H PRN PRN Reason: Nausea/Vomiting Last Admin: 12/18/17 02:39 Dose: 4 mg Pantoprazole Sodium (Protonix Inj) 40 mg IVP DAILY [facility] Last Admin: 12/17/17 10:30 Dose: 40 mg Sucralfate (Carafate Oral Susp) 1 gm PO 0630,1130,1630,2200 [facility] Last Admin: 12/18/17 05:39 Dose: 1 gm Tramadol HCl (Ultram) 50 mg PO TID PRN PRN Reason: Pain, moderate (4-7) - Labs Labs: PT 13.6 SECONDS (9.4-12.5) H 12/13/17 00:40 INR 1.19 (0.93-1.08) H 12/13/17 00:40 APTT 32.1 Seconds (25.1-36.5) 12/13/17 00:40 - Constitutional Appears: Non-toxic, No Acute Distress Assessment and Plan - Assessment and Plan (Free Text) Assessment: Abd Pain, N/V, diarrhea: Suspect related to Crohn's flare related to non- compliance with mesalamine. No elevated WBCs, nor findings on US and labs to point to other etiology. GB distended on CT but no stones seen on US. 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 Diarrhea could be related to malabsortion of bile salts given h/o R colectomy Plan: Cont mesalamine 1000 mg QID PPI Advance diet as tolerated, low residue Cont cholestyramine Pt to f/u with Dr. Jarrell as OP OK to DC from DC standpoint D/W Dr. Jarrell
[2017-12-18 08:06] VITALS: BP 136/90; PULSE 87; RESP 20; TEMP 97.7; O2SAT 98
[2017-12-18] MEDS: Mesalamine ER Cap 500 MG PO SCH (10:58)
[2017-12-18] MEDS: Cholestyramine 4 gm/Pkt UD PO SCH (10:59)
[2017-12-18] MEDS: Enoxaparin 40 mg Syringe SC SCH (10:59)
[2017-12-18] MEDS ORDERED: Pantoprazole 40 mg EC Tab PO SCH (11:29)
--- NOTE | 2017-12-19 12:40 | PN ---
DATE: 12/17/2017 SUBJECTIVE: The patient is a 46-year-old female with a history of Crohn disease, status post hemicolectomy, who was admitted with exacerbation of her Crohn disease. 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 She has been restarted on Pentasa 1000 mg 4 times a day. She admits to being noncompliant with this medication in the past, fearful of it's side effects. To date, the patient continues to have abdominal pain, mostly in the left lower quadrant. She ate some breakfast and some fish for dinner yesterday, however, continues to have bouts of diarrhea. However, she does seem to be improving slightly. The patient is requesting a possible discharge for the morning. I will be seeing her later on today in the office and he will receive prescriptions for her Pentasa and the patient is to be reevaluated in the morning for a possible discharge. Armani Stout MD
--- NOTE | 2017-12-19 19:54 | DS ---
HOSPITAL COURSE: The patient is a 46-year-old female who was admitted with exacerbation of Crohn disease 5 days ago. During the hospital stay, she received IV fluids and IV antibiotics. She had been restarted on her Pentasa with which she has been noncompliant in the past and she has slowly improved. The patient still has some left lower quadrant abdominal pain, occasional right lower quadrant tenderness; however, she seems to be tolerating her food a bit better. The patient is looking forward to discharge to home. She promises to be more compliant with her medication. So the patient is discharged to home on Pentasa 500 mg tablets to take 2 tablets four times a day. Other medications for chronic low back pain and bulging lumbar disks are to be continued as needed. The patient was once again urged to attempt weaning off and discontinuing opiates which could be further worsening her GI symptoms. The patient is discharged to home in an improved condition and she is to follow up with Gastroenterology and with our office within a week or two post discharge. FINAL DIAGNOSES: 1. Exacerbation of Crohn disease. 2. Chronic low back pain. Armani Stout MD
== END 2017-12-18 16:20 | disposition home or self-care (01) | DRG 386 ==
LOC: ED 23:45 → ERH 12-13 03:16 → 5RNO 12-13 04:30 → OBSVTOIN 12-13 13:59 → 5RNO 12-13 18:07
PROVIDERS: ADMIT Internal Medicine; ATTEND Internal Medicine
DX: K50.90 Crohn's disease, unspecified, without complications (principal); K63.3 Ulcer of intestine; E11.9 Type 2 diabetes mellitus without complications; G89.4 Chronic pain syndrome; I10 Essential (primary) hypertension; I34.1 Nonrheumatic mitral (valve) prolapse; K27.9 Peptic ulcer, site unspecified, unspecified as acute or chronic, without hemorrhage or perforation; K82.8 Other specified diseases of gallbladder; M47.9 Spondylosis, unspecified; M51.26 Other intervertebral disc displacement, lumbar region; Z79.891 Long term (current) use of opiate analgesic; Z87.891 Personal history of nicotine dependence; Z90.710 Acquired absence of both cervix and uterus; Z91.14 Patient's other noncompliance with medication regimen; Z91.19 Patient's noncompliance with other medical treatment and regimen; Z88.5 Allergy status to narcotic agent; Z90.49 Acquired absence of other specified parts of digestive tract; R40.2412 Glasgow coma scale score 13-15, at arrival to emergency department